=== PATIENT | male | born 1955 | race African-American/Black ===

== ENCOUNTER 2017-06-20 09:29 | Inpatient (IN) | payer OTHER ==
[~2017-06-20] VITALS: Ht 172.7 cm; Wt 213.0 kg
[~2017-06-20 09:29] MED LIST: ALBU2.5V13 NEB; OMEP20CA10 PO; POTA10TA15 PO; POTA8TAB4 PO
[2017-06-20] MEDS ORDERED: FURO-151 PO (09:58)
[2017-06-20] MEDS ORDERED: IPRATROPIUM/ALBUTEROL 0.5-3(2.5)MG/3ML NEB HHN ONE (10:30)
[2017-06-20 11:14] LABS: HEMATOCRIT. 35.8 % (42.0-52.0); HEMOGLOBIN. 11.5 g/dL (14.0-18.0); MEAN CORPUSCULAR HEMOGLOBIN 25.9 pg (28.0-32.0); MEAN CORPUSCULAR VOLUME 80.7 fL (80.0-94.0); MEAN PLATELET VOLUME 8.7 fl (7.4-10.4); RED BLOOD CELL COUNT 4.44 mill/uL (4.7-6.1); RED CELL DISTRIBUTION WIDTH 16.1 % (11.6-14.6)
[2017-06-20 11:40] LABS: CARBON DIOXIDE 29 mEq/L (21-32); CHLORIDE 103 mEq/L (98-107); INR 1.5; PARTIAL THROMBOPLASTIN TIME 26.8 sec (23.4-31.0); PROTHROMBIN TIME 15.6 sec (9.4-11.6)
[2017-06-20 11:48] LABS: TROPONIN I < 0.02 ng/mL (0.00-0.04)
[2017-06-20 12:29] LABS: PLATELET ESTIMATE NORMAL
[2017-06-20 12:30] LABS: PLATELET 205 x1000/uL (130-400)
[2017-06-20] MEDS ORDERED: FUROSEMIDE 40MG/4ML VIAL IVP ONE (13:45)
[2017-06-20 16:15] VITALS: BP 121/71
[2017-06-20 16:30] VITALS: BP 121/71
[2017-06-20] MEDS ORDERED: Proair HFA (17:57)
[2017-06-20] MEDS ORDERED: ACETAMINOPHEN 325MG TABLET PO PRN (19:30)
[2017-06-20] MEDS ORDERED: MAGNESIUM/ALUMINUM HYDROXIDE/SIMETHICONE 30ML UDC PO PRN (19:30)
[2017-06-20] MEDS ORDERED: GUAIFENESIN 200MG/10ML SUGAR FREE UDC PO PRN (19:30)
[2017-06-20] MEDS ORDERED: IPRATROPIUM/ALBUTEROL 0.5-3(2.5)MG/3ML NEB INH PRN (19:30)
[2017-06-20] MEDS ORDERED: CLONIDINE 0.1MG TABLET PO PRN (19:30)
[2017-06-20] MEDS ORDERED: MAGNESIUM HYDROXIDE 400MG/5ML 30ML UDC PO PRN (19:45)
[2017-06-20] MEDS ORDERED: ZOLPIDEM TARTRATE 5MG TABLET PO PRN (19:45)
[2017-06-20 20:00] VITALS: BP 145/86
[2017-06-20] MEDS: ENOXAPARIN 40MG/0.4ML SYR SUBCUT SCH (20:56)
[2017-06-20] MEDS: SODIUM CHLORIDE 0.9% INJ 3ML FLUSH IVF SCH (20:56)
[2017-06-20] MEDS: OMEPRAZOLE 20MG CAPSULE EXTENDED RELEASE PO SCH (23:40)
[2017-06-21] VITALS: BP 120/73
[2017-06-21 04:00] VITALS: BP 118/59
[2017-06-21] MEDS: SODIUM CHLORIDE 0.9% INJ 3ML FLUSH IVF SCH ×3 (05:23→21:39)
[2017-06-21] MEDS: OMEPRAZOLE 20MG CAPSULE EXTENDED RELEASE PO SCH ×2 (05:23→21:45)
[2017-06-21 08:00] VITALS: BP 141/88
[2017-06-21] MEDS: POTASSIUM CHLORIDE 20MEQ TABLET SR PO SCH ×2 (08:27→16:43)
[2017-06-21] MEDS: FUROSEMIDE 40MG/4ML VIAL IVP SCH ×3 (08:27→16:43)
[2017-06-21] MEDS: ENOXAPARIN 40MG/0.4ML SYR SUBCUT SCH ×2 (08:28→21:39)
[2017-06-21] MEDS: LOSARTAN POTASSIUM 25 MG TABLET PO SCH (08:28)
[2017-06-21] MEDS: CARVEDILOL 3.125 MG TABLET PO SCH ×2 (08:28→21:00)
[2017-06-21] MEDS ORDERED: FUROSEMIDE 40MG/4ML VIAL IVP SCH (09:00)
[2017-06-21] MEDS ORDERED: POTASSIUM CHLORIDE 20MEQ TABLET SR PO SCH (09:00)
[2017-06-21 12:00] VITALS: BP 114/80
[2017-06-21 16:00] VITALS: BP 114/67
[2017-06-21 20:00] VITALS: BP 108/55
[2017-06-21] MEDS: TRAMADOL 50MG TABLET PO PRN (21:41)
[2017-06-22] VITALS: BP 116/55
[2017-06-22] MEDS: IPRATROPIUM/ALBUTEROL 0.5-3(2.5)MG/3ML NEB HHN SCH ×4 (02:59→21:10)
[2017-06-22 04:00] VITALS: BP 98/47
[2017-06-22] MEDS: OMEPRAZOLE 20MG CAPSULE EXTENDED RELEASE PO SCH (05:46)
[2017-06-22] MEDS: SODIUM CHLORIDE 0.9% INJ 3ML FLUSH IVF SCH ×2 (05:46→13:29)
[2017-06-22] MEDS: TRAMADOL 50MG TABLET PO PRN (05:54)
[2017-06-22 07:51] LABS: CARBON DIOXIDE 35 mEq/L (21-32); CHLORIDE 98 mEq/L (98-107)
[2017-06-22] MEDS: POTASSIUM CHLORIDE 20MEQ TABLET SR PO SCH ×4 (08:24→17:51)
[2017-06-22] MEDS: FUROSEMIDE 40MG/4ML VIAL IVP SCH ×3 (08:24→16:22)
[2017-06-22] MEDS: LOSARTAN POTASSIUM 25 MG TABLET PO SCH (08:25)
[2017-06-22] MEDS: ENOXAPARIN 40MG/0.4ML SYR SUBCUT SCH (08:25)
[2017-06-22] MEDS: CARVEDILOL 3.125 MG TABLET PO SCH (08:26)
[2017-06-22 08:31] VITALS: BP 135/85
[2017-06-22 11:52] VITALS: BP 105/64
[2017-06-22] MEDS ORDERED: MAGNESIUM 4 G PREMIX 100 ML IV NR (15:00)
[2017-06-22 16:00] VITALS: BP 95/68
[2017-06-22 20:35] VITALS: BP 118/72
== END 2017-06-22 21:10 | disposition home or self-care (01) | DRG 291 ==
LOC: ER 12:22 → 5WST 13:59 → ENRESERV 14:10
PROVIDERS: ADMIT Internal Medicine; ATTEND Internal Medicine
DX: I11.0 Hypertensive heart disease with heart failure (principal); J96.20 Acute and chronic respiratory failure, unspecified whether with hypoxia or hypercapnia; Z68.45 Body mass index [BMI] 70 or greater, adult; I50.33 Acute on chronic diastolic (congestive) heart failure; K21.9 Gastro-esophageal reflux disease without esophagitis; G47.33 Obstructive sleep apnea (adult) (pediatric); J44.9 Chronic obstructive pulmonary disease, unspecified; E66.01 Morbid (severe) obesity due to excess calories; M19.90 Unspecified osteoarthritis, unspecified site; Z79.899 Other long term (current) drug therapy
CPT/HCPCS: 36415; 71010; 80048; 80053; 83690; 83735; 84484; 85025; 85610; 85730; 93005; 93306; 93970; 94640; 94644; 94660; 94664; 96374; 97162; 99285; J1650; J1940; J3475; J7050; J7620

== ENCOUNTER 2018-01-31 11:23 | Inpatient (IN) | payer OTHER ==
[~2018-01-31] VITALS: Ht 175.3 cm; Wt 208.7 kg
[~2018-01-31 11:23] MED LIST changes: -OMEP20CA10 PO; -POTA10TA15 PO; +Proair HFA
[2018-01-31] MEDS ORDERED: FURO40TA5 PO (11:34)
[2018-01-31] MEDS ORDERED: LOSA100T14 PO (11:34)
[2018-01-31 12:54] LABS: BASOPHILS % 0.5 % (0.0-2.0); EOSINOPHILS % 3.9 % (0.0-5.0); HEMATOCRIT. 33.5 % (42.0-52.0); HEMOGLOBIN. 10.8 g/dL (14.0-18.0); LYMPHOCYTES % 12.1 % (20.0-50.0); MEAN CORPUSCULAR HEMOGLOBIN 26.6 pg (28.0-32.0); MEAN CORPUSCULAR VOLUME 82.7 fL (80.0-94.0); MEAN PLATELET VOLUME 8.2 fl (7.4-10.4); MONOCYTES % 7.1 % (2.0-8.0); NEUTROPHILS % 76.4 % (40.0-76.0); PLATELET 215 x1000/uL (130-400); RED BLOOD CELL COUNT 4.04 mill/uL (4.7-6.1)
[2018-01-31 12:58] LABS: CHLORIDE 103 mEq/L (98-107)
[2018-01-31 13:01] LABS: INR 1.5; PARTIAL THROMBOPLASTIN TIME 34.8 sec (23.4-31.0)
[2018-01-31] MEDS ORDERED: FUROSEMIDE 40MG/4ML VIAL IVP ONE (14:00)
[2018-01-31] MEDS ORDERED: ACETAMINOPHEN 325MG TABLET PO PRN (17:00)
[2018-01-31] MEDS ORDERED: CLONIDINE 0.1MG TABLET PO PRN (17:00)
[2018-01-31] MEDS ORDERED: ONDANSETRON HCL 4MG/2ML VIAL IV PRN (17:00)
[2018-01-31] MEDS ORDERED: DOCUSATE SODIUM 100MG CAPSULE PO PRN (17:00)
[2018-01-31] MEDS ORDERED: GUAIFENESIN 200MG/10ML SUGAR FREE UDC PO PRN (17:00)
[2018-01-31] MEDS ORDERED: HYDROCODONE/ACETAMINOPHEN 5/325MG TABLET PO PRN (17:00)
[2018-01-31] MEDS ORDERED: IPRATROPIUM/ALBUTEROL 0.5-3(2.5)MG/3ML NEB INH PRN (17:00)
[2018-01-31 18:26] LABS: CLARITY URINE CLOUDY (CLEAR); COLOR URINE YELLOW (YELLOW); KETONES URINE TRACE (NEGATIVE); LEUKOCYTE ESTERASE URINE NEGATIVE (NEGATIVE); NITRITE URINE NEGATIVE (NEGATIVE); OCCULT BLOOD URINE NEGATIVE (NEGATIVE); PROTEIN URINE NEGATIVE (NEGATIVE); SPECIFIC GRAVITY URINE 1.029 (1.005-1.030)
[2018-01-31] MEDS: LOSARTAN POTASSIUM 100 MG TABLET PO SCH (20:45)
[2018-01-31] MEDS: METHYLPREDNISOLONE SOD SUCC 40 MG/ML VIAL IV SCH (20:45)
[2018-01-31 22:00] VITALS: BP 112/46
[2018-01-31] MEDS ORDERED: IBUP-2030 PO (23:15)
[2018-02-01] MEDS ORDERED: LEVOFLOXACIN 750MG PREMIX 150 ML IV NR
[2018-02-01 00:16] VITALS: BP 113/65
[2018-02-01] MEDS: IPRATROPIUM/ALBUTEROL 0.5-3(2.5)MG/3ML NEB HHN SCH ×4 (01:11→21:32)
[2018-02-01 04:43] VITALS: BP 115/64
[2018-02-01 07:02] LABS: HEMATOCRIT. 30.9 % (42.0-52.0); INR 1.6; MEAN CORPUSCULAR HEMOGLOBIN 26.9 pg (28.0-32.0); MEAN CORPUSCULAR VOLUME 82.6 fL (80.0-94.0); MEAN PLATELET VOLUME 8.3 fl (7.4-10.4); PLATELET 197 x1000/uL (130-400); PROTHROMBIN TIME 16.3 sec (9.4-11.6); RED BLOOD CELL COUNT 3.74 mill/uL (4.7-6.1); RED CELL DISTRIBUTION WIDTH 16.1 % (11.6-14.6)
[2018-02-01 07:27] LABS: CHLORIDE 102 mEq/L (98-107)
[2018-02-01 07:43] LABS: LDL CHOLESTEROL 59 mg/dL (5-100)
[2018-02-01 07:44] LABS: T4 FREE 1.18 ng/dL (0.76-1.46)
[2018-02-01 07:45] LABS: HDL CHOLESTEROL 47 mg/dL (40-59)
[2018-02-01 07:59] VITALS: BP 132/76
[2018-02-01] MEDS ORDERED: FUROSEMIDE 40MG TABLET PO SCH (09:00)
[2018-02-01] MEDS: FAMOTIDINE 20MG/2ML VIAL IV SCH ×2 (09:00→21:47)
[2018-02-01] MEDS: ENOXAPARIN 40MG/0.4ML SYR SUBCUT SCH ×2 (09:00→21:47)
[2018-02-01] MEDS: METHYLPREDNISOLONE SOD SUCC 40 MG/ML VIAL IV SCH ×2 (09:39→21:47)
[2018-02-01 12:08] VITALS: BP 119/65
[2018-02-01] MEDS: LOSARTAN POTASSIUM 100 MG TABLET PO SCH (12:17)
[2018-02-01 16:00] VITALS: BP 138/67
[2018-02-01] MEDS ORDERED: FUROSEMIDE 40MG/4ML VIAL IVP NR (20:00)
[2018-02-01 20:12] LABS: PLATELET ESTIMATE NORMAL
[2018-02-01 20:15] VITALS: BP 120/71
[2018-02-01] MEDS: LEVOFLOXACIN 750MG PREMIX 150 ML IV SCH (21:47)
[2018-02-02 00:27] VITALS: BP 119/52
[2018-02-02] MEDS: IPRATROPIUM/ALBUTEROL 0.5-3(2.5)MG/3ML NEB HHN SCH ×4 (03:51→21:29)
[2018-02-02 04:45] VITALS: BP 131/72
[2018-02-02 07:30] LABS: CHLORIDE 101 mEq/L (98-107)
[2018-02-02 07:51] VITALS: BP 129/71
[2018-02-02] MEDS: FAMOTIDINE 20MG/2ML VIAL IV SCH ×2 (08:26→22:28)
[2018-02-02] MEDS: FUROSEMIDE 40MG/4ML VIAL IVP SCH (08:26)
[2018-02-02] MEDS: METHYLPREDNISOLONE SOD SUCC 40 MG/ML VIAL IV SCH ×2 (08:27→21:38)
[2018-02-02] MEDS: LOSARTAN POTASSIUM 100 MG TABLET PO SCH (08:27)
[2018-02-02] MEDS: ENOXAPARIN 40MG/0.4ML SYR SUBCUT SCH ×2 (08:28→21:36)
[2018-02-02] MEDS ORDERED: DILTIAZEM HCL 60MG TABLET PO NR (09:09)
[2018-02-02 11:57] VITALS: BP 128/65
[2018-02-02 19:33] VITALS: BP 131/73
[2018-02-02] MEDS: HYDROCORTISONE 2.5% OINT 20GM TOP SCH (21:36)
[2018-02-02] MEDS: DILTIAZEM HCL 60MG TABLET PO SCH (21:36)
[2018-02-02] MEDS: LEVOFLOXACIN 750MG PREMIX 150 ML IV SCH (22:29)
[2018-02-02 23:48] VITALS: BP 122/65
[2018-02-03] MEDS: IPRATROPIUM/ALBUTEROL 0.5-3(2.5)MG/3ML NEB HHN SCH ×3 (01:13→14:17)
[2018-02-03 05:18] VITALS: BP 170/83
[2018-02-03] MEDS: DILTIAZEM HCL 60MG TABLET PO SCH ×2 (05:43→13:59)
[2018-02-03 06:36] LABS: HEMATOCRIT 32.3 % (42.0-52.0); HEMOGLOBIN 10.5 g/dL (14.0-18.0); MEAN CORPUSCULAR VOLUME 82.9 fL (80.0-94.0); PLATELET 246 x1000/uL (130-400); RED CELL DISTRIBUTION WIDTH 15.8 % (11.6-14.6)
[2018-02-03 07:03] LABS: CHLORIDE 97 mEq/L (98-107)
[2018-02-03 08:00] VITALS: BP 128/62
[2018-02-03] MEDS: METHYLPREDNISOLONE SOD SUCC 40 MG/ML VIAL IV SCH (09:08)
[2018-02-03] MEDS: FUROSEMIDE 40MG/4ML VIAL IVP SCH (09:08)
[2018-02-03] MEDS: ENOXAPARIN 40MG/0.4ML SYR SUBCUT SCH (09:09)
[2018-02-03] MEDS: LOSARTAN POTASSIUM 100 MG TABLET PO SCH (09:09)
[2018-02-03] MEDS: FAMOTIDINE 20MG/2ML VIAL IV SCH (09:14)
[2018-02-03] MEDS: HYDROCORTISONE 2.5% OINT 20GM TOP SCH (09:16)
[2018-02-03 12:00] VITALS: BP 122/70
[2018-02-03] MEDS ORDERED: LEVOFLOXACIN 250MG TABLET PO SCH (16:00)
[2018-02-03 17:44] VITALS: BP 138/65
== END 2018-02-03 18:00 | disposition home or self-care (01) | DRG 291 ==
LOC: ER 13:23 → 6WST 14:51 → SUPCPDRO 16:47 → ENRESERV 19:09
PROVIDERS: ADMIT Internal Medicine; ATTEND Internal Medicine
PROC: 5A09357 Assistance with Respiratory Ventilation, Less than 24 Consecutive Hours, Continuous Positive Airway Pressure (ICD-10-PCS; principal; 2018-02-01)
PROC: 5A09357 Assistance with Respiratory Ventilation, Less than 24 Consecutive Hours, Continuous Positive Airway Pressure (ICD-10-PCS; 2018-02-02)
PROC: 5A09357 Assistance with Respiratory Ventilation, Less than 24 Consecutive Hours, Continuous Positive Airway Pressure (ICD-10-PCS; 2018-02-03)
DX: I11.0 Hypertensive heart disease with heart failure (principal); J18.9 Pneumonia, unspecified organism; D68.9 Coagulation defect, unspecified; J44.0 Chronic obstructive pulmonary disease with (acute) lower respiratory infection; E66.2 Morbid (severe) obesity with alveolar hypoventilation; Z68.44 Body mass index [BMI] 60.0-69.9, adult; I47.1 Supraventricular tachycardia; J06.9 Acute upper respiratory infection, unspecified; I50.43 Acute on chronic combined systolic (congestive) and diastolic (congestive) heart failure; D64.9 Anemia, unspecified; Z79.899 Other long term (current) drug therapy
CPT/HCPCS: 36415; 71045; 80048; 80053; 80061; 81003; 83036; 83880; 84439; 84443; 84484; 85025; 85027; 85610; 85730; 93005; 93306; 93970; 94640; 94660; A6261; J1650; J1940; J1956; J2920; J3490; J7050; J7620

== ENCOUNTER 2019-05-14 15:37 | Emergency (ER) | payer OTHER ==
[~2019-05-14] VITALS: Ht 172.7 cm; Wt 215.9 kg
[~2019-05-14 15:37] MED LIST changes: +FURO40TA5 PO; +IBUP-2030 PO; +LOSA100T32 PO
[2019-05-14] MEDS ORDERED: METHYLPREDNISOLONE SOD SUCC 125 MG/2 ML VIAL IV STA (16:50)
[2019-05-14] MEDS ORDERED: IPRATROPIUM BROMIDE (0.02%) 0.5MG/2.5ML NEB HHN STA (16:50)
[2019-05-14] MEDS ORDERED: ALBUTEROL (0.083%) 2.5MG/3ML NEB HHN STA (16:50)
[2019-05-14] MEDS ORDERED: MAGNESIUM 2 G PREMIX 50 ML IV ONE (17:00)
[2019-05-14] MEDS ORDERED: ALBUTEROL (0.083%) 2.5MG/3ML NEB ONE (17:04)
[2019-05-14] MEDS ORDERED: IPRATROPIUM BROMIDE (0.02%) 0.5MG/2.5ML NEB ONE (17:04)
[2019-05-14 17:08] LABS: BASOPHILS % 0.6 % (0.0-2.0); EOSINOPHILS % 3.4 % (0.0-5.0); HEMATOCRIT. 34.6 % (42.0-52.0); HEMOGLOBIN. 11.2 g/dL (14.0-18.0); LYMPHOCYTES % 13.2 % (20.0-50.0); MEAN CORPUSCULAR HEMOGLOBIN 27.2 pg (28.0-32.0); MEAN PLATELET VOLUME 9.2 fl (7.4-10.4); MONOCYTES % 6.9 % (2.0-8.0); NEUTROPHILS % 75.9 % (40.0-76.0); PLATELET 204 x1000/uL (130-400); RED BLOOD CELL COUNT 4.12 mill/uL (4.7-6.1); RED CELL DISTRIBUTION WIDTH 15.8 % (11.6-14.6)
[2019-05-14 17:12] LABS: CHLORIDE 102 mEq/L (98-107)
[2019-05-14] MEDS ORDERED: ASPIRIN 81MG TABLET PO ONE (21:30)
[2019-05-14 23:46] VITALS: BP 144/74
== END 2019-05-14 23:42 | disposition short-term general hospital (02) ==
LOC: ER 15:37 → CANBEDREQ 18:47 → ER 23:42
DX: J44.1 Chronic obstructive pulmonary disease with (acute) exacerbation (principal); I11.0 Hypertensive heart disease with heart failure; I50.9 Heart failure, unspecified; G47.30 Sleep apnea, unspecified
CPT/HCPCS: 36415; 71045; 80053; 83880; 84484; 85025; 93005; 94640; 96365; 96366; 96375; 99285; J2930; J3475; J7611

== ENCOUNTER 2019-06-18 01:36 | Inpatient (IN) | payer OTHER ==
[~2019-06-18] VITALS: Ht 172.7 cm; Wt 214.5 kg
[2019-06-18 02:36] LABS: BASOPHILS % 0.6 % (0.0-2.0); EOSINOPHILS % 1.1 % (0.0-5.0); HEMATOCRIT. 34.8 % (42.0-52.0); HEMOGLOBIN. 11.4 g/dL (14.0-18.0); LYMPHOCYTES % 13.7 % (20.0-50.0); MEAN CORPUSCULAR HEMOGLOBIN 27.3 pg (28.0-32.0); MEAN CORPUSCULAR VOLUME 83.1 fL (80.0-94.0); MEAN PLATELET VOLUME 8.2 fl (7.4-10.4); MONOCYTES % 6.3 % (2.0-8.0); NEUTROPHILS % 78.3 % (40.0-76.0); PLATELET 219 x1000/uL (130-400); RED BLOOD CELL COUNT 4.19 mill/uL (4.7-6.1); RED CELL DISTRIBUTION WIDTH 15.2 % (11.6-14.6)
[2019-06-18] MEDS ORDERED: IPRATROPIUM BROMIDE (0.02%) 0.5MG/2.5ML NEB HHN STA (02:36)
[2019-06-18] MEDS ORDERED: ALBUTEROL (0.083%) 2.5MG/3ML NEB HHN STA (02:36)
[2019-06-18 02:43] LABS: CHLORIDE 99 mEq/L (98-107)
[2019-06-18] MEDS ORDERED: METHYLPREDNISOLONE SOD SUCC 125 MG/2 ML VIAL IV ONE (04:30)
[2019-06-18 08:00] VITALS: BP 143/79
[2019-06-18] MEDS ORDERED: DILT60TA3 PO (10:50)
[2019-06-18] MEDS ORDERED: DIPHENHYDRAMINE 50MG/ML VIAL IV PRN (11:00)
[2019-06-18] MEDS ORDERED: ACETAMINOPHEN 325MG TABLET PO PRN (11:00)
[2019-06-18] MEDS ORDERED: MAGNESIUM/ALUMINUM HYDROXIDE/SIMETHICONE 30ML UDC PO PRN (11:00)
[2019-06-18] MEDS ORDERED: IPRATROPIUM/ALBUTEROL 0.5-3(2.5)MG/3ML NEB NEB PRN (11:00)
[2019-06-18] MEDS ORDERED: ONDANSETRON HCL 4MG/2ML INJ IV PRN (11:00)
[2019-06-18] MEDS ORDERED: NA PHOS,M-B/NA PHOS,DI-BA ENEMA 118ML PR PRN (11:00)
[2019-06-18] MEDS ORDERED: CLONIDINE 0.1MG TABLET PO PRN (11:00)
[2019-06-18] MEDS ORDERED: HYDROCODONE/ACETAMINOPHEN 5/325MG TABLET PO PRN (11:00)
[2019-06-18] MEDS ORDERED: ACETAMINOPHEN 650MG SUPP PR PRN (11:00)
[2019-06-18] MEDS ORDERED: GUAIFENESIN 200MG/10ML SUGAR FREE UDC PO PRN (11:00)
[2019-06-18] MEDS ORDERED: LORAZEPAM 0.5MG TABLET PO PRN (11:00)
[2019-06-18 11:24] VITALS: BP 140/75
[2019-06-18 12:00] VITALS: BP 138/70
[2019-06-18] MEDS: FUROSEMIDE 40MG/4ML VIAL IV SCH (12:02)
[2019-06-18] MEDS: METHYLPREDNISOLONE SOD SUCC 40 MG/ML VIAL IV SCH ×2 (12:02→20:40)
[2019-06-18] MEDS: DOCUSATE SODIUM 100MG CAPSULE PO PRN (12:02)
[2019-06-18 12:30] LABS: BG BASE EXCESS 2.6 mmol/L (-2.0-2.0); BG CARBOXYHEMOGLOBIN 0.4 % (0.5-1.5); BG DEOXYHEMOGLOBIN 11.3 % (0.0-5.0); BG FRACTION INSPIRED OXYGEN 21; BG HCO3 ACT 28.1 mmol/L (22.0-26.0); BG METHEMOGLOBIN 0.1 % (0.0-1.5); BG OXYGEN SATURATION 88.6 % (92.0-98.5); BG OXYHEMOGLOBIN 88.2 % (94.0-97.0); BG PCO2 46.9 mmHg (35.0-45.0); BG PH 7.395 (7.350-7.450); BG SAMPLE SITE LEFT RADIAL; BG TOTAL HEMOGLOBIN 12.4 g/dL (12.0-18.0); BG VENT MODE ROOM AIR
[2019-06-18] MEDS: IPRATROPIUM/ALBUTEROL 0.5-3(2.5)MG/3ML NEB NEB SCH ×2 (14:20→20:28)
[2019-06-18 16:00] VITALS: BP 155/75
[2019-06-18] MEDS ORDERED: POTASSIUM CHLORIDE 20MEQ TABLET SR PO NR (17:00)
[2019-06-18] MEDS ORDERED: PIPERACILLIN/TAZOBACTAM 3.375 G in DEXT 5% WATER 100 ML IV SCH (18:00)
[2019-06-18] MEDS: DILTIAZEM HCL 60MG TABLET PO SCH ×2 (18:08→23:00)
[2019-06-18] MEDS: LOSARTAN POTASSIUM 100 MG TABLET PO SCH (18:09)
[2019-06-18 20:00] VITALS: BP 132/79
[2019-06-18] MEDS: BUDESONIDE 0.5MG/2ML NEB HHN SCH (20:27)
[2019-06-18] MEDS: PIPERACILLIN/TAZOBACTAM 3.375 G in DEXT 5% WATER 100 ML IV SCH (20:40)
[2019-06-18] MEDS: ENOXAPARIN 40MG/0.4ML SYR SUBCUT SCH (20:41)
[2019-06-19 00:17] VITALS: BP 145/79
[2019-06-19] MEDS: IPRATROPIUM/ALBUTEROL 0.5-3(2.5)MG/3ML NEB NEB SCH ×4 (00:43→22:02)
[2019-06-19] MEDS: PIPERACILLIN/TAZOBACTAM 3.375 G in DEXT 5% WATER 100 ML IV SCH ×4 (03:02→21:43)
[2019-06-19 04:59] VITALS: BP 122/74
[2019-06-19] MEDS: DILTIAZEM HCL 60MG TABLET PO SCH ×3 (05:42→21:46)
[2019-06-19] MEDS: METHYLPREDNISOLONE SOD SUCC 40 MG/ML VIAL IV SCH ×3 (05:42→21:38)
[2019-06-19 06:36] LABS: BASOPHILS % 0.2 % (0.0-2.0); HEMATOCRIT. 33.7 % (42.0-52.0); LYMPHOCYTES % 7.2 % (20.0-50.0); MEAN CORPUSCULAR HEMOGLOBIN 27.5 pg (28.0-32.0); MEAN CORPUSCULAR VOLUME 84.1 fL (80.0-94.0); MEAN PLATELET VOLUME 9.6 fl (7.4-10.4); MONOCYTES % 3.7 % (2.0-8.0); NEUTROPHILS % 88.9 % (40.0-76.0); PLATELET 187 x1000/uL (130-400); RED BLOOD CELL COUNT 4.01 mill/uL (4.7-6.1); RED CELL DISTRIBUTION WIDTH 15.4 % (11.6-14.6)
[2019-06-19 07:48] LABS: CHLORIDE 98 mEq/L (98-107)
[2019-06-19] MEDS: BUDESONIDE 0.5MG/2ML NEB HHN SCH ×2 (07:52→22:02)
[2019-06-19 07:56] LABS: HDL CHOLESTEROL 55 mg/dL (40-59)
[2019-06-19 07:57] LABS: PHOSPHORUS 4.3 mg/dL (2.5-4.9)
[2019-06-19 07:58] LABS: LDL CHOLESTEROL 73 mg/dL (5-100)
[2019-06-19 08:35] LABS: CLARITY URINE CLEAR (CLEAR); COLOR URINE YELLOW (YELLOW); KETONES URINE NEGATIVE (NEGATIVE); LEUKOCYTE ESTERASE URINE NEGATIVE (NEGATIVE); NITRITE URINE NEGATIVE (NEGATIVE); OCCULT BLOOD URINE NEGATIVE (NEGATIVE); PROTEIN URINE NEGATIVE (NEGATIVE); SPECIFIC GRAVITY URINE 1.022 (1.005-1.030); UROBILINOGEN URINE 0.2 E.U./dL (0.2-1.0)
[2019-06-19 08:42] VITALS: BP 104/64
[2019-06-19] MEDS: LOSARTAN POTASSIUM 100 MG TABLET PO SCH (08:57)
[2019-06-19] MEDS: DOCUSATE SODIUM 100MG CAPSULE PO PRN (09:01)
[2019-06-19] MEDS: FUROSEMIDE 40MG/4ML VIAL IV SCH ×2 (09:01→18:28)
[2019-06-19] MEDS: ENOXAPARIN 40MG/0.4ML SYR SUBCUT SCH ×2 (09:02→21:45)
[2019-06-19 09:23] LABS: *AMPHETAMINES SCREEN URINE NEGATIVE (NEGATIVE); *BARBITURATES SCREEN URINE NEGATIVE (NEGATIVE); *BENZODIAZEPINES SCREEN URINE NEGATIVE (NEGATIVE); *COCAINE SCREEN URINE NEGATIVE (NEGATIVE)
[2019-06-19 09:24] LABS: CANNABINOID URINE SCREEN NEGATIVE (NEGATIVE); METHADONE URINE SCREEN NEGATIVE (NEGATIVE); OPIATES URINE SCREEN NEGATIVE (NEGATIVE); PHENCYCLIDINE URINE SCREEN NEGATIVE (NEGATIVE)
[2019-06-19 12:00] VITALS: BP 118/69
[2019-06-19 16:00] VITALS: BP 128/65
[2019-06-19] MEDS ORDERED: DEXTROSE 50% WATER 50ML SYRINGE IV PRN (16:00)
[2019-06-19] MEDS: BLOOD SUGAR DIAGNOSTIC STRIP TEST SCH ×2 (18:23→21:45)
[2019-06-19] MEDS: INSULIN LISPRO 100 UNITS/ML SUBCUT SCH ×2 (18:29→21:53)
[2019-06-19 20:00] VITALS: BP 130/71
[2019-06-20] VITALS: BP 124/70
[2019-06-20] MEDS: PIPERACILLIN/TAZOBACTAM 3.375 G in DEXT 5% WATER 100 ML IV SCH ×3 (01:41→12:51)
[2019-06-20 04:00] VITALS: BP 126/72
[2019-06-20] MEDS: METHYLPREDNISOLONE SOD SUCC 40 MG/ML VIAL IV SCH ×2 (05:18→12:51)
[2019-06-20] MEDS: DILTIAZEM HCL 60MG TABLET PO SCH ×2 (05:56→12:52)
[2019-06-20] MEDS: BLOOD SUGAR DIAGNOSTIC STRIP TEST SCH ×2 (05:56→12:47)
[2019-06-20 07:32] LABS: HEMATOCRIT 34.7 % (42.0-52.0); HEMOGLOBIN 11.2 g/dL (14.0-18.0); MEAN CORPUSCULAR HEMOGLOBIN 27.1 pg (28.0-32.0); PLATELET 215 x1000/uL (130-400); RED BLOOD CELL COUNT 4.13 mill/uL (4.7-6.1); RED CELL DISTRIBUTION WIDTH 15.6 % (11.6-14.6)
[2019-06-20 07:40] LABS: CHLORIDE 95 mEq/L (98-107)
[2019-06-20 08:00] VITALS: BP 130/78
[2019-06-20] MEDS: LOSARTAN POTASSIUM 100 MG TABLET PO SCH (08:33)
[2019-06-20] MEDS: DOCUSATE SODIUM 100MG CAPSULE PO PRN (08:33)
[2019-06-20] MEDS: FUROSEMIDE 40MG/4ML VIAL IV SCH (08:34)
[2019-06-20] MEDS: ENOXAPARIN 40MG/0.4ML SYR SUBCUT SCH (08:34)
[2019-06-20] MEDS: INSULIN LISPRO 100 UNITS/ML SUBCUT SCH ×2 (08:35→12:53)
[2019-06-20] MEDS: BUDESONIDE 0.5MG/2ML NEB HHN SCH (08:58)
[2019-06-20] MEDS: IPRATROPIUM/ALBUTEROL 0.5-3(2.5)MG/3ML NEB NEB SCH ×2 (08:58→14:17)
[2019-06-20 12:00] VITALS: BP 117/75
[2019-06-20 16:00] VITALS: BP 139/71
[2019-06-20 16:22] VITALS: BP 139/71
== END 2019-06-20 18:41 | disposition home or self-care (01) | DRG 291 ==
LOC: ER 01:36 → 7WST 05:23 → ENRESERV 07:01
PROVIDERS: ADMIT Internal Medicine; ATTEND Internal Medicine
PROC: 5A09357 Assistance with Respiratory Ventilation, Less than 24 Consecutive Hours, Continuous Positive Airway Pressure (ICD-10-PCS; principal; 2019-06-19)
PROC: 5A09357 Assistance with Respiratory Ventilation, Less than 24 Consecutive Hours, Continuous Positive Airway Pressure (ICD-10-PCS; 2019-06-20)
DX: I11.0 Hypertensive heart disease with heart failure (principal); J18.9 Pneumonia, unspecified organism; J44.1 Chronic obstructive pulmonary disease with (acute) exacerbation; E66.2 Morbid (severe) obesity with alveolar hypoventilation; E87.2 Acidosis; N39.0 Urinary tract infection, site not specified; J45.901 Unspecified asthma with (acute) exacerbation; Z68.45 Body mass index [BMI] 70 or greater, adult; J44.0 Chronic obstructive pulmonary disease with (acute) lower respiratory infection; R73.9 Hyperglycemia, unspecified; I50.23 Acute on chronic systolic (congestive) heart failure; R73.03 Prediabetes; D64.9 Anemia, unspecified; I48.0 Paroxysmal atrial fibrillation; Z99.81 Dependence on supplemental oxygen; Z79.899 Other long term (current) drug therapy
CPT/HCPCS: 36415; 36600; 71045; 80048; 80061; 80305; 81003; 82375; 82805; 82962; 83036; 83735; 83880; 84100; 84132; 84439; 84443; 84484; 85027; 87070; 87804; 93005; 93970; 94640; 94660; 97162; 97535; 99285; J1650; J1815; J1940; J2543; J2920; J2930; J7060; J7611; J7620; J7626

== ENCOUNTER 2019-08-15 14:39 | Inpatient (IN) | payer OTHER ==
[2019-08-14 22:00] VITALS: BP 125/71
[~2019-08-15] VITALS: Ht 167.6 cm; Wt 218.6 kg
[~2019-08-15 14:39] MED LIST changes: +DILT60TA3 PO; -IBUP-2030 PO
[2019-08-15] MEDS ORDERED: IPRATROPIUM BROMIDE (0.02%) 0.5MG/2.5ML NEB HHN STA (15:58)
[2019-08-15] MEDS ORDERED: ALBUTEROL (0.083%) 2.5MG/3ML NEB HHN STA (15:58)
[2019-08-15] MEDS ORDERED: METHYLPREDNISOLONE SOD SUCC 125 MG/2 ML VIAL IV STA (15:58)
[2019-08-15] MEDS ORDERED: FUROSEMIDE 40MG/4ML VIAL IV ONE (16:00)
[2019-08-15] MEDS ORDERED: NITROGLYCERIN OINT 1GM/INCH UDPKT TD ONE (16:00)
[2019-08-15] MEDS ORDERED: ASPIRIN 81MG TABLET PO ONE (16:00)
[2019-08-15 16:34] LABS: BASOPHILS % 0.8 % (0.0-2.0); EOSINOPHILS % 4.1 % (0.0-5.0); HEMATOCRIT. 36.1 % (42.0-52.0); HEMOGLOBIN. 11.7 g/dL (14.0-18.0); LYMPHOCYTES % 13.4 % (20.0-50.0); MEAN CORPUSCULAR VOLUME 83.2 fL (80.0-94.0); MEAN PLATELET VOLUME 8.5 fl (7.4-10.4); MONOCYTES % 5.8 % (2.0-8.0); NEUTROPHILS % 75.9 % (40.0-76.0); PLATELET 236 x1000/uL (130-400); RED BLOOD CELL COUNT 4.34 mill/uL (4.7-6.1); RED CELL DISTRIBUTION WIDTH 15.4 % (11.6-14.6)
[2019-08-15 16:39] LABS: CHLORIDE 99 mEq/L (98-107)
[2019-08-15 16:44] LABS: INR 1.5; PARTIAL THROMBOPLASTIN TIME 29.6 sec (23.4-31.0); PROTHROMBIN TIME 15.3 sec (9.6-11.0)
[2019-08-15] MEDS ORDERED: POTA20TA82 MT (22:49)
[2019-08-15] MEDS ORDERED: POTA20TA82 PO (22:51)
[2019-08-16] VITALS (7 sets, daily range): BP systolic 118–140; BP diastolic 60–86
[2019-08-16] MEDS ORDERED: HYDROCODONE/ACETAMINOPHEN 5/325MG TABLET PO PRN (01:45)
[2019-08-16 06:03] LABS: HEMATOCRIT. 34.8 % (42.0-52.0); HEMOGLOBIN. 11.3 g/dL (14.0-18.0); LYMPHOCYTES % 8.2 % (20.0-50.0); MEAN CORPUSCULAR HEMOGLOBIN 26.9 pg (28.0-32.0); MEAN CORPUSCULAR VOLUME 82.9 fL (80.0-94.0); MEAN PLATELET VOLUME 8.4 fl (7.4-10.4); MONOCYTES % 2.1 % (2.0-8.0); NEUTROPHILS % 89.7 % (40.0-76.0); PLATELET 221 x1000/uL (130-400); RED BLOOD CELL COUNT 4.19 mill/uL (4.7-6.1); RED CELL DISTRIBUTION WIDTH 15.5 % (11.6-14.6)
[2019-08-16 06:11] LABS: CHLORIDE 99 mEq/L (98-107)
[2019-08-16 06:26] LABS: T4 FREE 1.05 ng/dL (0.76-1.46)
[2019-08-16 08:01] LABS: *AMPHETAMINES SCREEN URINE NEGATIVE (NEGATIVE); *BARBITURATES SCREEN URINE NEGATIVE (NEGATIVE)
[2019-08-16 08:02] LABS: *BENZODIAZEPINES SCREEN URINE NEGATIVE (NEGATIVE); *COCAINE SCREEN URINE NEGATIVE (NEGATIVE); CANNABINOID URINE SCREEN NEGATIVE (NEGATIVE); METHADONE URINE SCREEN NEGATIVE (NEGATIVE); OPIATES URINE SCREEN PRESUMTIVE POSITIVE (NEGATIVE); PHENCYCLIDINE URINE SCREEN NEGATIVE (NEGATIVE)
[2019-08-16] MEDS: METHYLPREDNISOLONE SOD SUCC 40 MG/ML VIAL IV SCH ×2 (08:11→21:07)
[2019-08-16] MEDS: PANTOPRAZOLE 40MG DR TABLET PO SCH (08:12)
[2019-08-16] MEDS: ENOXAPARIN 40MG/0.4ML SYR SUBCUT SCH ×2 (08:12→21:06)
[2019-08-16] MEDS: FUROSEMIDE 40MG/4ML VIAL IVP SCH ×2 (08:12→21:06)
[2019-08-16] MEDS ORDERED: ENOXAPARIN 40MG/0.4ML SYR SUBCUT SCH (09:00)
[2019-08-16] MEDS: IPRATROPIUM/ALBUTEROL 0.5-3(2.5)MG/3ML NEB HHN SCH ×4 (09:17→21:15)
[2019-08-16] MEDS ORDERED: ONDANSETRON HCL 4MG/2ML INJ IV PRN (13:45)
[2019-08-17 04:00] VITALS: BP 107/51
[2019-08-17 08:00] VITALS: BP 136/79
[2019-08-17] MEDS: IPRATROPIUM/ALBUTEROL 0.5-3(2.5)MG/3ML NEB HHN SCH ×3 (08:51→16:39)
[2019-08-17] MEDS ORDERED: LIDOCAINE HCL/PF 1% 2ML VIAL ONE (09:00)
[2019-08-17] MEDS: METHYLPREDNISOLONE SOD SUCC 40 MG/ML VIAL IV SCH (09:08)
[2019-08-17] MEDS: ENOXAPARIN 40MG/0.4ML SYR SUBCUT SCH (09:08)
[2019-08-17] MEDS: PANTOPRAZOLE 40MG DR TABLET PO SCH (09:08)
[2019-08-17] MEDS: FUROSEMIDE 40MG/4ML VIAL IVP SCH (09:08)
[2019-08-17 09:18] LABS: CHLORIDE 97 mEq/L (98-107)
[2019-08-17 09:29] LABS: BASOPHILS % 0.1 % (0.0-2.0); HEMATOCRIT. 34.9 % (42.0-52.0); HEMOGLOBIN. 11.3 g/dL (14.0-18.0); LYMPHOCYTES % 12.1 % (20.0-50.0); MEAN CORPUSCULAR HEMOGLOBIN 26.9 pg (28.0-32.0); MEAN CORPUSCULAR VOLUME 82.9 fL (80.0-94.0); MEAN PLATELET VOLUME 8.9 fl (7.4-10.4); MONOCYTES % 6.7 % (2.0-8.0); NEUTROPHILS % 81.1 % (40.0-76.0); PLATELET 230 x1000/uL (130-400); RED BLOOD CELL COUNT 4.22 mill/uL (4.7-6.1); RED CELL DISTRIBUTION WIDTH 15.2 % (11.6-14.6)
[2019-08-17 12:00] VITALS: BP 120/79
[2019-08-17 14:18] LABS: BG BASE EXCESS 8.4 mmol/L (-2.0-2.0); BG CARBOXYHEMOGLOBIN 0.5 % (0.5-1.5); BG DEOXYHEMOGLOBIN 5.7 % (0.0-5.0); BG FRACTION INSPIRED OXYGEN 32; BG HCO3 ACT 34.4 mmol/L (22.0-26.0); BG METHEMOGLOBIN 0.3 % (0.0-1.5); BG OXYGEN SATURATION 94.3 % (92.0-98.5); BG OXYHEMOGLOBIN 93.5 % (94.0-97.0); BG PCO2 53.1 mmHg (35.0-45.0); BG PH 7.429 (7.350-7.450); BG PO2 75.5 mmHg (75.0-100.0); BG SAMPLE SITE RIGHT RADIAL; BG TOTAL HEMOGLOBIN 13.1 g/dL (12.0-18.0); BG VENT MODE NASAL CANNULA
[2019-08-17 16:00] VITALS: BP 148/88
[2019-08-17 16:46] VITALS: BP 148/88
[2019-10-08] MEDS ORDERED: P20 MT (12:49)
[2019-10-08] MEDS ORDERED: DILT30TA38 MT (12:49)
[2019-10-08] MEDS ORDERED: FLUT1AER INH (12:49)
[2019-10-08] MEDS ORDERED: FURO-151 MT (12:51)
== END 2019-08-17 18:00 | disposition home or self-care (01) | DRG 190 ==
LOC: ER 14:39 → 7WST 18:01 → ENRESERVDT 20:40 → ENRESERVTM 20:40
PROVIDERS: ADMIT Internal Medicine; ATTEND Internal Medicine
PROC: 5A09357 Assistance with Respiratory Ventilation, Less than 24 Consecutive Hours, Continuous Positive Airway Pressure (ICD-10-PCS; principal; 2019-08-16)
PROC: 5A09357 Assistance with Respiratory Ventilation, Less than 24 Consecutive Hours, Continuous Positive Airway Pressure (ICD-10-PCS; 2019-08-17)
DX: J44.1 Chronic obstructive pulmonary disease with (acute) exacerbation (principal); I50.23 Acute on chronic systolic (congestive) heart failure; I42.9 Cardiomyopathy, unspecified; E66.2 Morbid (severe) obesity with alveolar hypoventilation; Z68.45 Body mass index [BMI] 70 or greater, adult; N39.0 Urinary tract infection, site not specified; J45.901 Unspecified asthma with (acute) exacerbation; J96.10 Chronic respiratory failure, unspecified whether with hypoxia or hypercapnia; E44.1 Mild protein-calorie malnutrition; I11.0 Hypertensive heart disease with heart failure; D64.9 Anemia, unspecified; K21.9 Gastro-esophageal reflux disease without esophagitis; I48.0 Paroxysmal atrial fibrillation; R73.03 Prediabetes; Z99.81 Dependence on supplemental oxygen; Z79.899 Other long term (current) drug therapy
CPT/HCPCS: 36415; 36600; 71045; 80053; 80305; 82375; 82805; 83735; 83880; 84439; 84443; 84484; 85025; 93005; 94640; 94660; 96374; 96375; 99285; C1893; J1650; J1940; J2920; J2930; J3490; J7611; J7620

== ENCOUNTER 2020-11-19 11:10 | Inpatient (IN) | payer OTHER ==
[~2020-11-19] VITALS: Ht 172.7 cm; Wt 207.9 kg
[~2020-11-19 11:10] MED LIST changes: +ALBU90AE INH; +APIX5TAB MT; +FLUT1AER INH; +FURO-151 MT; -FURO40TA5 PO; -LOSA100T32 PO; +P20 PO; -POTA8TAB4 PO; -Proair HFA
[2020-11-19 11:52] LABS: BG BASE EXCESS 7.8 mmol/L (-2.0-2.0); BG CARBOXYHEMOGLOBIN 0.2 % (0.5-1.5); BG DEOXYHEMOGLOBIN 1.2 % (0.0-5.0); BG FRACTION INSPIRED OXYGEN 28; BG METHEMOGLOBIN 0.3 % (0.0-1.5); BG OXYGEN SATURATION 98.8 % (92.0-98.5); BG OXYHEMOGLOBIN 98.3 % (94.0-97.0); BG PCO2 56.1 mmHg (35.0-45.0); BG PH 7.401 (7.350-7.450); BG PO2 157.8 mmHg (75.0-100.0); BG SAMPLE SITE RIGHT RADIAL; BG TOTAL HEMOGLOBIN 11.1 g/dL (12.0-18.0); BG VENT MODE NASAL CANNULA
[2020-11-19 11:57] LABS: BASOPHILS % 0.5 % (0.0-2.0); HEMATOCRIT. 31.1 % (42.0-52.0); LYMPHOCYTES % 13.4 % (20.0-50.0); MEAN CORPUSCULAR HEMOGLOBIN 26.6 pg (28.0-32.0); MEAN CORPUSCULAR VOLUME 82.7 fL (80.0-94.0); MEAN PLATELET VOLUME 7.4 fl (7.4-10.4); MONOCYTES % 7.5 % (2.0-8.0); NEUTROPHILS % 76.6 % (40.0-76.0); PLATELET 225 x1000/uL (130-400); RED BLOOD CELL COUNT 3.76 mill/uL (4.7-6.1); RED CELL DISTRIBUTION WIDTH 17.5 % (11.6-14.6)
[2020-11-19] MEDS ORDERED: ALBUTEROL (0.083%) 2.5MG/3ML NEB HHN ONE (12:00)
[2020-11-19 12:02] LABS: CHLORIDE 104 mEq/L (98-107)
[2020-11-19 12:06] LABS: INR 1.7; PROTHROMBIN TIME 17.4 sec (9.6-11.0)
[2020-11-19] MEDS ORDERED: FUROSEMIDE 40MG/4ML VIAL IVP ONE (12:45)
[2020-11-19] MEDS ORDERED: LORAZEPAM 0.5MG TABLET PO PRN (15:00)
[2020-11-19] MEDS ORDERED: PIPERACILLIN SODIUM/TAZOBACTAM 4.5 G in DEXT 5% WATER 100 ML IV SCH (15:00)
[2020-11-19] MEDS ORDERED: NA PHOS,M-B/NA PHOS,DI-BA ENEMA 118ML PR PRN (15:00)
[2020-11-19] MEDS ORDERED: ACETAMINOPHEN 650MG SUPP PR PRN (15:00)
[2020-11-19] MEDS ORDERED: MAGNESIUM/ALUMINUM HYDROXIDE/SIMETHICONE 30ML UDC PO PRN (15:00)
[2020-11-19] MEDS ORDERED: CLONIDINE 0.1MG TABLET PO PRN (15:00)
[2020-11-19] MEDS ORDERED: PIPERACILLIN/TAZ 3.375G PREMIX 50 ML IV SCH (15:00)
[2020-11-19] MEDS ORDERED: GUAIFENESIN 200MG/10ML SUGAR FREE UDC PO PRN (15:00)
[2020-11-19] MEDS ORDERED: HYDROCODONE/ACETAMINOPHEN 5/325MG TABLET PO PRN (15:00)
[2020-11-19] MEDS ORDERED: DOCUSATE SODIUM 100MG CAPSULE PO PRN (15:00)
[2020-11-19] MEDS ORDERED: DIPHENHYDRAMINE 50MG/ML VIAL IV PRN (15:00)
[2020-11-19] MEDS ORDERED: ACETAMINOPHEN 325MG TABLET PO PRN (15:00)
[2020-11-19] MEDS ORDERED: DEXAMETHASONE 4MG/ML 1ML VIAL IV ONE (15:00)
[2020-11-19] MEDS ORDERED: ONDANSETRON HCL 4MG/2ML INJ IV PRN (15:00)
[2020-11-19] MEDS: LOSARTAN POTASSIUM 25 MG TABLET PO SCH (15:43)
[2020-11-19] MEDS: METHYLPREDNISOLONE SOD SUCC 40 MG/ML VIAL IV SCH ×2 (15:44→21:06)
[2020-11-19] MEDS: DILTIAZEM HCL 60MG TABLET PO SCH ×2 (15:44→21:06)
[2020-11-19 16:33] VITALS: BP 150/81
[2020-11-19 16:39] VITALS: BP 150/81
[2020-11-19] MEDS: FUROSEMIDE 40MG/4ML VIAL IVP SCH (17:44)
[2020-11-19] MEDS: ENOXAPARIN 150MG/ML SYR SUBCUT SCH (17:46)
[2020-11-19] MEDS: ALBUTEROL 6.7GM HFA INHALER ORI SCH (18:00)
[2020-11-19 18:49] LABS: CLARITY URINE CLEAR (CLEAR); COLOR URINE YELLOW (YELLOW); KETONES URINE NEGATIVE (NEGATIVE); LEUKOCYTE ESTERASE URINE NEGATIVE (NEGATIVE); NITRITE URINE NEGATIVE (NEGATIVE); OCCULT BLOOD URINE NEGATIVE (NEGATIVE); PROTEIN URINE NEGATIVE (NEGATIVE); SPECIFIC GRAVITY URINE 1.009 (1.005-1.030); UROBILINOGEN URINE 0.2 E.U./dL (0.2-1.0)
[2020-11-19 20:00] VITALS: BP 127/71
[2020-11-19] MEDS: FAMOTIDINE 20MG TABLET PO SCH (21:06)
[2020-11-20] VITALS: BP 130/60
[2020-11-20] MEDS: ALBUTEROL 6.7GM HFA INHALER ORI SCH (00:42)
[2020-11-20 04:00] VITALS: BP 109/70
[2020-11-20] MEDS: DILTIAZEM HCL 60MG TABLET PO SCH (05:31)
[2020-11-20] MEDS: METHYLPREDNISOLONE SOD SUCC 40 MG/ML VIAL IV SCH ×3 (05:37→21:36)
[2020-11-20] MEDS: ENOXAPARIN 150MG/ML SYR SUBCUT SCH ×2 (05:38→17:50)
[2020-11-20] MEDS: FUROSEMIDE 40MG/4ML VIAL IVP SCH ×2 (06:17→17:47)
[2020-11-20 07:55] LABS: BASOPHILS % 0.3 % (0.0-2.0); HEMATOCRIT. 32.3 % (42.0-52.0); HEMOGLOBIN. 10.3 g/dL (14.0-18.0); LYMPHOCYTES % 11.2 % (20.0-50.0); MEAN CORPUSCULAR HEMOGLOBIN 26.1 pg (28.0-32.0); MEAN CORPUSCULAR VOLUME 82.2 fL (80.0-94.0); MEAN PLATELET VOLUME 8.2 fl (7.4-10.4); MONOCYTES % 1.2 % (2.0-8.0); NEUTROPHILS % 87.3 % (40.0-76.0); PLATELET 247 x1000/uL (130-400); RED BLOOD CELL COUNT 3.93 mill/uL (4.7-6.1); RED CELL DISTRIBUTION WIDTH 17.1 % (11.6-14.6)
[2020-11-20 08:00] VITALS: BP 133/78
[2020-11-20 08:03] LABS: INR 1.8; PROTHROMBIN TIME 18.7 sec (9.6-11.0)
[2020-11-20] MEDS: ASPIRIN 81MG EC TABLET PO SCH (08:12)
[2020-11-20] MEDS: LOSARTAN POTASSIUM 25 MG TABLET PO SCH (08:12)
[2020-11-20 08:17] LABS: CHLORIDE 97 mEq/L (98-107)
[2020-11-20 11:10] VITALS: BP 117/81
[2020-11-20 12:00] VITALS: BP 104/63
[2020-11-20] MEDS: ALBUTEROL (0.083%) 2.5MG/3ML NEB HHN SCH ×2 (13:30→20:51)
[2020-11-20] MEDS ORDERED: ALBUTEROL (0.083%) 2.5MG/3ML NEB ONE (13:36)
[2020-11-20] MEDS: PIPERACILLIN SODIUM/TAZOBACTAM 4.5 G in DEXT 5% WATER 100 ML IV SCH ×2 (14:18→17:47)
[2020-11-20] MEDS: DILTIAZEM HCL 90MG TABLET PO SCH ×2 (14:41→21:36)
[2020-11-20 20:00] VITALS: BP 149/85
[2020-11-20] MEDS ORDERED: PIPERACILLIN SODIUM/TAZOBACTAM 4.5 G in DEXT 5% WATER 100 ML IV SCH (20:00)
[2020-11-20] MEDS: FAMOTIDINE 20MG TABLET PO SCH (21:34)
[2020-11-20] MEDS: CARVEDILOL 3.125 MG TABLET PO SCH (21:35)
[2020-11-21] VITALS: BP 101/68
[2020-11-21] MEDS: PIPERACILLIN SODIUM/TAZOBACTAM 4.5 G in DEXT 5% WATER 100 ML IV SCH ×4 (00:19→17:19)
[2020-11-21] MEDS: ALBUTEROL (0.083%) 2.5MG/3ML NEB HHN SCH ×4 (01:57→21:39)
[2020-11-21 04:00] VITALS: BP 110/71
[2020-11-21 06:11] LABS: BASOPHILS % 0.1 % (0.0-2.0); HEMOGLOBIN. 9.5 g/dL (14.0-18.0); LYMPHOCYTES % 9.3 % (20.0-50.0); MEAN CORPUSCULAR HEMOGLOBIN 26.9 pg (28.0-32.0); MEAN CORPUSCULAR VOLUME 82.1 fL (80.0-94.0); MEAN PLATELET VOLUME 7.8 fl (7.4-10.4); MONOCYTES % 3.7 % (2.0-8.0); NEUTROPHILS % 86.9 % (40.0-76.0); PLATELET 265 x1000/uL (130-400); RED BLOOD CELL COUNT 3.54 mill/uL (4.7-6.1); RED CELL DISTRIBUTION WIDTH 16.8 % (11.6-14.6)
[2020-11-21] MEDS: DILTIAZEM HCL 90MG TABLET PO SCH ×3 (06:11→17:41)
[2020-11-21] MEDS: METHYLPREDNISOLONE SOD SUCC 40 MG/ML VIAL IV SCH ×3 (06:11→20:33)
[2020-11-21] MEDS: ENOXAPARIN 150MG/ML SYR SUBCUT SCH ×2 (06:11→17:45)
[2020-11-21 06:18] LABS: CHLORIDE 95 mEq/L (98-107)
[2020-11-21] MEDS: FUROSEMIDE 40MG/4ML VIAL IVP SCH ×2 (06:31→17:16)
[2020-11-21 08:05] VITALS: BP 124/79
[2020-11-21] MEDS: CARVEDILOL 3.125 MG TABLET PO SCH (09:00)
[2020-11-21] MEDS: ASPIRIN 81MG EC TABLET PO SCH (09:00)
[2020-11-21 11:53] VITALS: BP 113/80
[2020-11-21] MEDS ORDERED: DEXTROSE 50% WATER 50ML SYRINGE IV PRN ×2 (16:00)
[2020-11-21 16:35] VITALS: BP 118/73
[2020-11-21] MEDS: BLOOD SUGAR DIAGNOSTIC STRIP TEST SCH ×2 (17:19→20:26)
[2020-11-21] MEDS: INSULIN LISPRO 100 UNITS/ML SUBCUT SCH ×2 (17:38→20:32)
[2020-11-21] MEDS ORDERED: DIGOXIN 125MCG TABLET PO SCH (18:00)
[2020-11-21 20:00] VITALS: BP 112/73
[2020-11-21] MEDS: CARVEDILOL 6.25 MG TABLET PO SCH (20:21)
[2020-11-21] MEDS: FAMOTIDINE 20MG TABLET PO SCH (20:21)
[2020-11-22] VITALS: BP 113/69
[2020-11-22] MEDS: PIPERACILLIN SODIUM/TAZOBACTAM 4.5 G in DEXT 5% WATER 100 ML IV SCH ×4 (00:07→17:17)
[2020-11-22] MEDS: DILTIAZEM HCL 90MG TABLET PO SCH ×4 (00:07→17:16)
[2020-11-22] MEDS: ALBUTEROL (0.083%) 2.5MG/3ML NEB HHN SCH ×4 (01:11→22:05)
[2020-11-22 04:00] VITALS: BP 101/65
[2020-11-22 05:58] LABS: INR 1.7; PROTHROMBIN TIME 17.8 sec (9.6-11.0)
[2020-11-22 06:08] LABS: BASOPHILS % 0.1 % (0.0-2.0); HEMATOCRIT. 29.6 % (42.0-52.0); HEMOGLOBIN. 9.6 g/dL (14.0-18.0); LYMPHOCYTES % 8.2 % (20.0-50.0); MEAN CORPUSCULAR HEMOGLOBIN 26.8 pg (28.0-32.0); MEAN CORPUSCULAR VOLUME 82.4 fL (80.0-94.0); MEAN PLATELET VOLUME 7.8 fl (7.4-10.4); MONOCYTES % 4.5 % (2.0-8.0); NEUTROPHILS % 87.2 % (40.0-76.0); PLATELET 280 x1000/uL (130-400); RED BLOOD CELL COUNT 3.59 mill/uL (4.7-6.1); RED CELL DISTRIBUTION WIDTH 16.6 % (11.6-14.6)
[2020-11-22 06:17] LABS: CHLORIDE 93 mEq/L (98-107)
[2020-11-22] MEDS: BLOOD SUGAR DIAGNOSTIC STRIP TEST SCH ×4 (06:22→21:42)
[2020-11-22] MEDS: ENOXAPARIN 150MG/ML SYR SUBCUT SCH ×2 (06:22→17:16)
[2020-11-22] MEDS: METHYLPREDNISOLONE SOD SUCC 40 MG/ML VIAL IV SCH ×3 (06:23→21:55)
[2020-11-22] MEDS: FUROSEMIDE 40MG/4ML VIAL IVP SCH ×2 (06:39→16:23)
[2020-11-22 07:51] VITALS: BP 106/73
[2020-11-22] MEDS: INSULIN LISPRO 100 UNITS/ML SUBCUT SCH ×4 (08:33→21:57)
[2020-11-22] MEDS: ASCORBIC ACID 500 MG TABLET PO SCH (08:34)
[2020-11-22] MEDS: ZINC SULFATE 220 MG ( 50 ) CAPSULE PO SCH (08:35)
[2020-11-22] MEDS: ASPIRIN 81MG EC TABLET PO SCH (08:35)
[2020-11-22] MEDS: CARVEDILOL 6.25 MG TABLET PO SCH ×2 (08:37→21:55)
[2020-11-22 11:53] VITALS: BP 125/88
[2020-11-22 16:36] VITALS: BP 121/88
[2020-11-22] MEDS: DIGOXIN 250MCG TABLET PO SCH (17:15)
[2020-11-22 20:00] VITALS: BP 129/82
[2020-11-22] MEDS: FAMOTIDINE 20MG TABLET PO SCH (21:55)
[2020-11-22] MEDS: INSULIN GLARGINE UD 100 UNITS/ML SYR SUBCUT SCH (21:58)
[2020-11-23] VITALS: BP_SYST 138; BP_SYST 141; BP_DIAS 60; BP_DIAS 66
[2020-11-23] MEDS: PIPERACILLIN SODIUM/TAZOBACTAM 4.5 G in DEXT 5% WATER 100 ML IV SCH ×4 (00:50→17:41)
[2020-11-23] MEDS: DILTIAZEM HCL 90MG TABLET PO SCH ×4 (00:51→17:40)
[2020-11-23 04:00] VITALS: BP 100/63
[2020-11-23] MEDS: ALBUTEROL (0.083%) 2.5MG/3ML NEB HHN SCH ×3 (04:14→12:57)
[2020-11-23] MEDS: METHYLPREDNISOLONE SOD SUCC 40 MG/ML VIAL IV SCH ×3 (07:06→21:49)
[2020-11-23] MEDS: ENOXAPARIN 150MG/ML SYR SUBCUT SCH ×2 (07:08→17:16)
[2020-11-23] MEDS: FUROSEMIDE 40MG/4ML VIAL IVP SCH ×2 (07:08→17:40)
[2020-11-23] MEDS: BLOOD SUGAR DIAGNOSTIC STRIP TEST SCH ×4 (07:08→21:23)
[2020-11-23 07:12] LABS: HEMATOCRIT. 34.4 % (42.0-52.0); HEMOGLOBIN. 11.1 g/dL (14.0-18.0); MEAN CORPUSCULAR HEMOGLOBIN 26.5 pg (28.0-32.0); MEAN CORPUSCULAR VOLUME 81.8 fL (80.0-94.0); MONOCYTES % 5.7 % (2.0-8.0); NEUTROPHILS % 85.3 % (40.0-76.0); PLATELET 315 x1000/uL (130-400); RED CELL DISTRIBUTION WIDTH 16.9 % (11.6-14.6)
[2020-11-23 07:19] LABS: CHLORIDE 93 mEq/L (98-107)
[2020-11-23 08:00] VITALS: BP 117/60
[2020-11-23] MEDS: CARVEDILOL 6.25 MG TABLET PO SCH ×2 (09:00→21:48)
[2020-11-23] MEDS: ASPIRIN 81MG EC TABLET PO SCH (09:00)
[2020-11-23] MEDS: ZINC SULFATE 220 MG ( 50 ) CAPSULE PO SCH (09:00)
[2020-11-23] MEDS: ASCORBIC ACID 500 MG TABLET PO SCH (09:00)
[2020-11-23] MEDS: INSULIN LISPRO 100 UNITS/ML SUBCUT SCH ×4 (09:08→22:08)
[2020-11-23 12:00] VITALS: BP 114/74
[2020-11-23 16:00] VITALS: BP 118/72
[2020-11-23] MEDS: DIGOXIN 250MCG TABLET PO SCH (17:40)
[2020-11-23 20:00] VITALS: BP 129/83
[2020-11-23] MEDS: FAMOTIDINE 20MG TABLET PO SCH (21:48)
[2020-11-23] MEDS ORDERED: INSULIN LISPRO 100 UNITS/ML SUBCUT NR (22:00)
[2020-11-23] MEDS: INSULIN GLARGINE UD 100 UNITS/ML SYR SUBCUT SCH (22:11)
[2020-11-24] VITALS: BP 111/60
[2020-11-24] MEDS: PIPERACILLIN SODIUM/TAZOBACTAM 4.5 G in DEXT 5% WATER 100 ML IV SCH ×4 (00:25→17:49)
[2020-11-24] MEDS: DILTIAZEM HCL 90MG TABLET PO SCH ×4 (00:25→17:38)
[2020-11-24] MEDS: ALBUTEROL (0.083%) 2.5MG/3ML NEB HHN SCH ×4 (02:00→21:24)
[2020-11-24 04:00] VITALS: BP 111/67
[2020-11-24] MEDS: METHYLPREDNISOLONE SOD SUCC 40 MG/ML VIAL IV SCH ×2 (06:53→13:41)
[2020-11-24] MEDS: FUROSEMIDE 40MG/4ML VIAL IVP SCH ×2 (06:54→17:39)
[2020-11-24] MEDS: BLOOD SUGAR DIAGNOSTIC STRIP TEST SCH ×4 (06:54→20:26)
[2020-11-24] MEDS: ENOXAPARIN 150MG/ML SYR SUBCUT SCH ×2 (06:54→17:38)
[2020-11-24 08:00] VITALS: BP 115/75
[2020-11-24] MEDS: ASPIRIN 81MG EC TABLET PO SCH (08:40)
[2020-11-24] MEDS: ASCORBIC ACID 500 MG TABLET PO SCH (08:40)
[2020-11-24] MEDS: ZINC SULFATE 220 MG ( 50 ) CAPSULE PO SCH (08:40)
[2020-11-24] MEDS: CARVEDILOL 6.25 MG TABLET PO SCH (08:41)
[2020-11-24] MEDS: INSULIN LISPRO 100 UNITS/ML SUBCUT SCH ×4 (08:42→21:00)
[2020-11-24 11:55] VITALS: BP 122/66
[2020-11-24] MEDS ORDERED: INSULIN LISPRO 100 UNITS/ML SUBCUT NR (12:00)
[2020-11-24] MEDS: INSULIN GLARGINE UD 100 UNITS/ML SYR SUBCUT SCH ×2 (12:32→21:00)
[2020-11-24 16:00] VITALS: BP 126/68
[2020-11-24] MEDS: DIGOXIN 250MCG TABLET PO SCH (17:38)
[2020-11-24 20:00] VITALS: BP 148/71
[2020-11-24] MEDS: FAMOTIDINE 20MG TABLET PO SCH (20:56)
[2020-11-24] MEDS: METOPROLOL TARTRATE 50MG TABLET PO SCH (20:59)
[2020-11-25 00:04] VITALS: BP 104/68
[2020-11-25] MEDS: ALBUTEROL (0.083%) 2.5MG/3ML NEB HHN SCH ×2 (02:22→08:06)
[2020-11-25 04:00] VITALS: BP 107/72
[2020-11-25] MEDS: FUROSEMIDE 40MG/4ML VIAL IVP SCH (06:19)
[2020-11-25] MEDS: DILTIAZEM HCL 90MG TABLET PO SCH ×3 (06:19→12:42)
[2020-11-25] MEDS: BLOOD SUGAR DIAGNOSTIC STRIP TEST SCH ×2 (06:20→12:31)
[2020-11-25] MEDS: ENOXAPARIN 150MG/ML SYR SUBCUT SCH (06:20)
[2020-11-25 07:10] LABS: BASOPHILS % 0.2 % (0.0-2.0); HEMATOCRIT. 32.4 % (42.0-52.0); HEMOGLOBIN. 10.4 g/dL (14.0-18.0); LYMPHOCYTES % 8.8 % (20.0-50.0); MEAN CORPUSCULAR HEMOGLOBIN 26.1 pg (28.0-32.0); MEAN CORPUSCULAR VOLUME 81.5 fL (80.0-94.0); MEAN PLATELET VOLUME 7.9 fl (7.4-10.4); MONOCYTES % 7.1 % (2.0-8.0); NEUTROPHILS % 83.9 % (40.0-76.0); PLATELET 334 x1000/uL (130-400); RED BLOOD CELL COUNT 3.98 mill/uL (4.7-6.1); RED CELL DISTRIBUTION WIDTH 16.9 % (11.6-14.6)
[2020-11-25 07:22] LABS: CHLORIDE 93 mEq/L (98-107)
[2020-11-25 07:51] LABS: DIGOXIN 0.7 ng/mL (0.9-2.0)
[2020-11-25 08:00] VITALS: BP 127/59
[2020-11-25] MEDS: ZINC SULFATE 220 MG ( 50 ) CAPSULE PO SCH (08:50)
[2020-11-25] MEDS: INSULIN LISPRO 100 UNITS/ML SUBCUT SCH ×2 (08:50→12:41)
[2020-11-25] MEDS: ASPIRIN 81MG EC TABLET PO SCH (08:50)
[2020-11-25] MEDS: ASCORBIC ACID 500 MG TABLET PO SCH (08:50)
[2020-11-25] MEDS: METOPROLOL TARTRATE 50MG TABLET PO SCH (08:52)
[2020-11-25] MEDS ORDERED: METHYLPREDNISOLONE SOD SUCC 40 MG/ML VIAL IV SCH (09:00)
[2020-11-25] MEDS: INSULIN GLARGINE UD 100 UNITS/ML SYR SUBCUT SCH (10:15)
[2020-11-25] MEDS ORDERED: PRED10TA PO (11:59)
[2020-11-25] MEDS ORDERED: SULF1TAB48 MT (11:59)
[2020-11-25 12:00] VITALS: BP 112/68
[2020-11-25] MEDS ORDERED: SULFAMETHOXAZOLE/TRIMETHOPRIM 800/160MG TABLET PO SCH (12:00)
[2020-11-25 15:59] VITALS: BP 137/67
[2020-11-25 16:00] VITALS: BP 137/67
== END 2020-11-25 17:55 | disposition home health service (06) | DRG 190 ==
LOC: ER 11:10 → 7WST 14:43 → ENRESERV 15:15 → 6WST 11-20 11:31
PROVIDERS: ADMIT Internal Medicine; ATTEND Internal Medicine
PROC: 5A09357 Assistance with Respiratory Ventilation, Less than 24 Consecutive Hours, Continuous Positive Airway Pressure (ICD-10-PCS; principal; 2020-11-20)
PROC: 5A09357 Assistance with Respiratory Ventilation, Less than 24 Consecutive Hours, Continuous Positive Airway Pressure (ICD-10-PCS; 2020-11-21)
PROC: 5A09357 Assistance with Respiratory Ventilation, Less than 24 Consecutive Hours, Continuous Positive Airway Pressure (ICD-10-PCS; 2020-11-23)
PROC: 5A09357 Assistance with Respiratory Ventilation, Less than 24 Consecutive Hours, Continuous Positive Airway Pressure (ICD-10-PCS; 2020-11-24)
PROC: 5A09357 Assistance with Respiratory Ventilation, Less than 24 Consecutive Hours, Continuous Positive Airway Pressure (ICD-10-PCS; 2020-11-25)
DX: J44.1 Chronic obstructive pulmonary disease with (acute) exacerbation (principal); I50.23 Acute on chronic systolic (congestive) heart failure; D68.59 Other primary thrombophilia; E66.2 Morbid (severe) obesity with alveolar hypoventilation; I48.92 Unspecified atrial flutter; Z68.45 Body mass index [BMI] 70 or greater, adult; I42.0 Dilated cardiomyopathy; Z68.44 Body mass index [BMI] 60.0-69.9, adult; E11.65 Type 2 diabetes mellitus with hyperglycemia; I11.0 Hypertensive heart disease with heart failure; I48.0 Paroxysmal atrial fibrillation; Z20.822 Contact with and (suspected) exposure to COVID-19; Z79.01 Long term (current) use of anticoagulants; K21.9 Gastro-esophageal reflux disease without esophagitis; D64.9 Anemia, unspecified; B95.62 Methicillin resistant Staphylococcus aureus infection as the cause of diseases classified elsewhere; R06.03 Acute respiratory distress; Z79.51 Long term (current) use of inhaled steroids; Z79.899 Other long term (current) drug therapy; Z82.49 Family history of ischemic heart disease and other diseases of the circulatory system
CPT/HCPCS: 36415; 36600; 71045; 80048; 80053; 80162; 81003; 82375; 82805; 82962; 83036; 83735; 83880; 84443; 84484; 85025; 93005; 93970; 94003; 94640; 94660; 97116; 97162; 99291; C1893; J1100; J1650; J1815; J1940; J2543; J2920; J7040; J7060; U0003

== ENCOUNTER 2020-12-17 00:48 | Inpatient (IN) | payer OTHER ==
[~2020-12-17] VITALS: Ht 175.3 cm; Wt 169.6 kg
[2020-12-17] VITALS (72 sets, daily range): BP systolic 62–170; BP diastolic 29–115
[~2020-12-17 00:48] MED LIST changes: +PRED10TA PO; +SULF1TAB48 MT
[2020-12-17] MEDS ORDERED: ASPIRIN 81MG TABLET PO ONE (01:15)
[2020-12-17] MEDS ORDERED: DILTIAZEM HCL 5MG/ML 5ML VIAL IV ONE (01:15)
[2020-12-17] MEDS ORDERED: DILTIAZEM HCL 125 MG in DEXT 5% WATER 100 ML IV ONE (01:15)
[2020-12-17] MEDS ORDERED: FUROSEMIDE 40MG/4ML VIAL IV ONE (01:15)
[2020-12-17 01:29] LABS: BASOPHILS % 0.8 % (0.0-2.0); EOSINOPHILS % 0.6 % (0.0-5.0); HEMATOCRIT. 30.9 % (42.0-52.0); HEMOGLOBIN. 9.7 g/dL (14.0-18.0); LYMPHOCYTES % 18.1 % (20.0-50.0); MEAN CORPUSCULAR HEMOGLOBIN 26.1 pg (28.0-32.0); MEAN CORPUSCULAR VOLUME 83.6 fL (80.0-94.0); MEAN PLATELET VOLUME 7.7 fl (7.4-10.4); MONOCYTES % 9.7 % (2.0-8.0); NEUTROPHILS % 70.8 % (40.0-76.0); PLATELET 252 x1000/uL (130-400); RED CELL DISTRIBUTION WIDTH 18.6 % (11.6-14.6)
[2020-12-17 01:34] LABS: CHLORIDE 102 mEq/L (98-107)
[2020-12-17 02:51] LABS: INR 1.5; PARTIAL THROMBOPLASTIN TIME 25.5 sec (23.4-31.0); PROTHROMBIN TIME 15.5 sec (9.6-11.0)
[2020-12-17 03:58] LABS: CLARITY URINE CLEAR (CLEAR); COLOR URINE YELLOW (YELLOW); KETONES URINE NEGATIVE (NEGATIVE); LEUKOCYTE ESTERASE URINE NEGATIVE (NEGATIVE); NITRITE URINE NEGATIVE (NEGATIVE); OCCULT BLOOD URINE NEGATIVE (NEGATIVE); PROTEIN URINE NEGATIVE (NEGATIVE); SPECIFIC GRAVITY URINE 1.009 (1.005-1.030); UROBILINOGEN URINE 0.2 E.U./dL (0.2-1.0)
[2020-12-17] MEDS ORDERED: CARV3.1242 MT (06:10)
[2020-12-17] MEDS ORDERED: IPRATROPIUM/ALBUTEROL 0.5-3(2.5)MG/3ML NEB HHN PRN (06:45)
[2020-12-17] MEDS ORDERED: PREDNISONE 20MG TABLET PO SCH (08:20)
[2020-12-17] MEDS: PANTOPRAZOLE SODIUM 40 MG/VIAL IV SCH (08:49)
[2020-12-17] MEDS ORDERED: PREDNISOLONE 15 MG/5 ML ORAL SYRINGE PO SCH (09:00)
[2020-12-17] MEDS ORDERED: FUROSEMIDE 40MG/4ML VIAL IVP SCH ×2 (09:00→17:15)
[2020-12-17] MEDS ORDERED: ENOXAPARIN 40MG/0.4ML SYR SUBCUT SCH ×2 (09:00)
[2020-12-17] MEDS ORDERED: APIXABAN 5 MG TABLET PO SCH (09:00)
[2020-12-17] MEDS ORDERED: DIGOXIN 500MCG/2ML AMP IV NR (10:30)
[2020-12-17] MEDS: METHYLPREDNISOLONE SOD SUCC 40 MG/ML VIAL IV SCH ×2 (10:42→17:26)
[2020-12-17] MEDS: DILTIAZEM HCL 90MG TABLET PO SCH ×4 (10:42→23:20)
[2020-12-17] MEDS ORDERED: ACETAMINOPHEN 650MG SUPP PR PRN (11:45)
[2020-12-17] MEDS ORDERED: HYDRALAZINE 20MG/ML VIAL IV PRN (11:45)
[2020-12-17] MEDS ORDERED: HYDROCODONE/ACETAMINOPHEN 5/325MG TABLET PO PRN (11:45)
[2020-12-17] MEDS ORDERED: CLONIDINE 0.1MG TABLET PO PRN (11:45)
[2020-12-17] MEDS ORDERED: DOCUSATE SODIUM 100MG CAPSULE PO PRN (11:45)
[2020-12-17] MEDS ORDERED: ACETAMINOPHEN 325MG TABLET PO PRN (11:45)
[2020-12-17] MEDS: LOSARTAN POTASSIUM 25 MG TABLET PO SCH (11:52)
[2020-12-17] MEDS ORDERED: DEXTROSE 50% WATER 50ML SYRINGE IV PRN (12:00)
[2020-12-17] MEDS: BLOOD SUGAR DIAGNOSTIC STRIP TEST SCH ×3 (12:14→21:32)
[2020-12-17] MEDS: FUROSEMIDE 40MG/4ML VIAL IVP SCH ×2 (13:07→21:18)
[2020-12-17] MEDS: INSULIN LISPRO 100 UNITS/ML SUBCUT SCH ×3 (13:08→21:29)
[2020-12-17] MEDS: METOPROLOL TARTRATE 25MG TABLET PO SCH ×2 (13:08→21:00)
[2020-12-17] MEDS: IPRATROPIUM/ALBUTEROL 0.5-3(2.5)MG/3ML NEB HHN SCH ×2 (14:33→20:47)
[2020-12-17 15:42] LABS: BASOPHILS % 0.3 % (0.0-2.0); EOSINOPHILS % 0.1 % (0.0-5.0); HEMATOCRIT. 30.8 % (42.0-52.0); HEMOGLOBIN. 9.7 g/dL (14.0-18.0); LYMPHOCYTES % 7.3 % (20.0-50.0); MEAN CORPUSCULAR HEMOGLOBIN 26.3 pg (28.0-32.0); MEAN CORPUSCULAR VOLUME 83.7 fL (80.0-94.0); MEAN PLATELET VOLUME 7.8 fl (7.4-10.4); MONOCYTES % 2.8 % (2.0-8.0); NEUTROPHILS % 89.5 % (40.0-76.0); PLATELET 258 x1000/uL (130-400); RED BLOOD CELL COUNT 3.68 mill/uL (4.7-6.1); RED CELL DISTRIBUTION WIDTH 18.6 % (11.6-14.6)
[2020-12-17 16:04] LABS: CHLORIDE 100 mEq/L (98-107)
[2020-12-17 16:12] LABS: CREATINE KINASE 31 IU/L (39-308)
[2020-12-17 16:14] LABS: CREATINE KINASE MB FRACTION < 1.0 ng/mL (0.5-3.6)
[2020-12-17] MEDS: ENOXAPARIN 150MG/ML SYR SUBCUT SCH (23:21)
[2020-12-17 23:39] LABS: CREATINE KINASE 30 IU/L (39-308)
[2020-12-17 23:40] LABS: CREATINE KINASE MB FRACTION < 1.0 ng/mL (0.5-3.6)
[2020-12-18] VITALS (50 sets, daily range): BP systolic 45–145; BP diastolic 29–93
[2020-12-18] MEDS: IPRATROPIUM/ALBUTEROL 0.5-3(2.5)MG/3ML NEB HHN SCH ×4 (01:05→21:06)
[2020-12-18] MEDS: METHYLPREDNISOLONE SOD SUCC 40 MG/ML VIAL IV SCH ×3 (02:06→17:30)
[2020-12-18] MEDS: FUROSEMIDE 40MG/4ML VIAL IVP SCH ×4 (02:06→20:49)
[2020-12-18] MEDS: DILTIAZEM HCL 90MG TABLET PO SCH ×3 (05:51→17:29)
[2020-12-18 06:51] LABS: BASOPHILS % 0.1 % (0.0-2.0); HEMATOCRIT. 30.1 % (42.0-52.0); HEMOGLOBIN. 9.6 g/dL (14.0-18.0); LYMPHOCYTES % 10.2 % (20.0-50.0); MEAN CORPUSCULAR HEMOGLOBIN 26.9 pg (28.0-32.0); MONOCYTES % 2.8 % (2.0-8.0); NEUTROPHILS % 86.9 % (40.0-76.0); PLATELET 265 x1000/uL (130-400); RED BLOOD CELL COUNT 3.58 mill/uL (4.7-6.1); RED CELL DISTRIBUTION WIDTH 18.5 % (11.6-14.6)
[2020-12-18 06:54] LABS: CHLORIDE 96 mEq/L (98-107)
[2020-12-18 06:58] LABS: INR 1.7; PROTHROMBIN TIME 17.3 sec (9.6-11.0)
[2020-12-18 07:04] LABS: CREATINE KINASE 29 IU/L (39-308)
[2020-12-18 07:07] LABS: CREATINE KINASE MB FRACTION < 1.0 ng/mL (0.5-3.6)
[2020-12-18] MEDS: BLOOD SUGAR DIAGNOSTIC STRIP TEST SCH ×3 (08:16→20:40)
[2020-12-18] MEDS: INSULIN LISPRO 100 UNITS/ML SUBCUT SCH ×4 (08:20→20:55)
[2020-12-18] MEDS: METOPROLOL TARTRATE 25MG TABLET PO SCH ×2 (08:40→20:49)
[2020-12-18] MEDS: LOSARTAN POTASSIUM 25 MG TABLET PO SCH (08:40)
[2020-12-18] MEDS: PANTOPRAZOLE SODIUM 40 MG/VIAL IV SCH (08:41)
[2020-12-18 16:00] LABS: CREATINE KINASE 26 IU/L (39-308)
[2020-12-18 16:01] LABS: CREATINE KINASE MB FRACTION < 1.0 ng/mL (0.5-3.6)
[2020-12-18 22:15] LABS: CREATINE KINASE 29 IU/L (39-308); CREATINE KINASE MB FRACTION < 1.0 ng/mL (0.5-3.6)
[2020-12-19] VITALS: BP 117/68
[2020-12-19 00:30] VITALS: BP 116/68
[2020-12-19] MEDS: ENOXAPARIN 150MG/ML SYR SUBCUT SCH (01:24)
[2020-12-19] MEDS: FUROSEMIDE 40MG/4ML VIAL IVP SCH (01:24)
[2020-12-19] MEDS: METHYLPREDNISOLONE SOD SUCC 40 MG/ML VIAL IV SCH (01:24)
[2020-12-19 01:25] VITALS: BP 126/69
[2020-12-19] MEDS: DILTIAZEM HCL 90MG TABLET PO SCH (01:25)
== END 2020-12-19 01:50 | disposition short-term general hospital (02) | DRG 189 ==
LOC: ER 00:48 → ENRESERV 05:18 → CVICU 06:07 → 3WST 12-18 17:02
PROVIDERS: ADMIT Internal Medicine; ATTEND Internal Medicine
PROC: 5A09357 Assistance with Respiratory Ventilation, Less than 24 Consecutive Hours, Continuous Positive Airway Pressure (ICD-10-PCS; principal; 2020-12-18)
DX: J96.20 Acute and chronic respiratory failure, unspecified whether with hypoxia or hypercapnia (principal); D68.59 Other primary thrombophilia; E66.2 Morbid (severe) obesity with alveolar hypoventilation; I48.3 Typical atrial flutter; J44.1 Chronic obstructive pulmonary disease with (acute) exacerbation; Z68.43 Body mass index [BMI] 50.0-59.9, adult; I42.0 Dilated cardiomyopathy; I42.2 Other hypertrophic cardiomyopathy; I11.0 Hypertensive heart disease with heart failure; D64.9 Anemia, unspecified; E78.5 Hyperlipidemia, unspecified; J45.909 Unspecified asthma, uncomplicated; E11.65 Type 2 diabetes mellitus with hyperglycemia; Z20.822 Contact with and (suspected) exposure to COVID-19; I48.0 Paroxysmal atrial fibrillation; I50.9 Heart failure, unspecified; Z79.01 Long term (current) use of anticoagulants; Z79.51 Long term (current) use of inhaled steroids; Z79.899 Other long term (current) drug therapy; Z86.14 Personal history of Methicillin resistant Staphylococcus aureus infection; Z87.891 Personal history of nicotine dependence
CPT/HCPCS: 36415; 71045; 80048; 80053; 81003; 82550; 82553; 82962; 83036; 83735; 83880; 84132; 84484; 85025; 87426; 93005; 94640; 94660; 99285; C9113; J1160; J1650; J1815; J1940; J2920; J3490; J7060; J7512

== ENCOUNTER 2021-02-26 11:48 | Emergency (ER) | payer OTHER ==
[~2021-02-26] VITALS: Ht 172.7 cm; Wt 200.0 kg
[~2021-02-26 11:48] MED LIST changes: +CARV3.1242 MT; -SULF1TAB48 MT
[2021-02-26 13:13] LABS: BASOPHILS % 0.8 % (0.0-2.0); EOSINOPHILS % 2.8 % (0.0-5.0); HEMATOCRIT. 34.8 % (42.0-52.0); HEMOGLOBIN. 11.5 g/dL (14.0-18.0); LYMPHOCYTES % 16.2 % (20.0-50.0); MEAN CORPUSCULAR HEMOGLOBIN 28.2 pg (28.0-32.0); MEAN CORPUSCULAR VOLUME 85.3 fL (80.0-94.0); MEAN PLATELET VOLUME 8.5 fl (7.4-10.4); MONOCYTES % 8.4 % (2.0-8.0); NEUTROPHILS % 71.8 % (40.0-76.0); PLATELET 273 x1000/uL (130-400); RED BLOOD CELL COUNT 4.08 mill/uL (4.7-6.1); RED CELL DISTRIBUTION WIDTH 18.1 % (11.6-14.6)
[2021-02-26 13:19] LABS: CHLORIDE 104 mEq/L (98-107)
[2021-02-26] MEDS ORDERED: ASPIRIN 81MG TABLET PO ONE (15:15)
[2021-02-26] MEDS ORDERED: FUROSEMIDE 40MG/4ML VIAL IV ONE (15:15)
[2021-02-26] MEDS ORDERED: NITROGLYCERIN 0.4MG TABLET SL SL PRN (15:15)
[2021-02-26] MEDS ORDERED: METHYLPREDNISOLONE SOD SUCC 40 MG/ML VIAL IV NR (15:45)
[2021-02-26] MEDS ORDERED: IPRATROPIUM/ALBUTEROL 0.5-3(2.5)MG/3ML NEB HHN NR (15:45)
[2021-02-26] MEDS ORDERED: IPRATROPIUM/ALBUTEROL 0.5-3(2.5)MG/3ML NEB HHN SCH (18:00)
[2021-02-26 22:30] VITALS: BP 143/63
== END 2021-02-26 23:31 | disposition short-term general hospital (02) ==
LOC: ER 11:48 → CANBEDREQ 02-27 00:04
DX: I11.0 Hypertensive heart disease with heart failure (principal); I50.9 Heart failure, unspecified; I20.0 Unstable angina; I10 Essential (primary) hypertension; J44.1 Chronic obstructive pulmonary disease with (acute) exacerbation; I48.91 Unspecified atrial fibrillation; Z20.822 Contact with and (suspected) exposure to COVID-19; Z79.899 Other long term (current) drug therapy
CPT/HCPCS: 36415; 71045; 80053; 83880; 84484; 85025; 87426; 93005; 94640; 96374; 96375; 99285; J1940; J2920

== ENCOUNTER 2022-02-27 15:07 | Inpatient (IN) | payer OTHER ==
[~2022-02-27] VITALS: Ht 174 cm; Wt 75.3 kg
[~2022-02-27 15:07] MED LIST changes: +AMIO100T4 PO; +ASPI-1497 PO; +FERR324T22 PO; -FURO-151 MT; +FURO40TA5 PO; +GLIP5TAB12 MT; +LOSA25TA3 MT; +METF-414 PO; -P20 PO; +POTA-79 PO; -PRED10TA PO; +SPIR25TA MT
[2022-02-27 16:06] LABS: HEMATOCRIT. 35.9 % (42.0-52.0); HEMOGLOBIN. 11.3 g/dL (14.0-18.0); MEAN CORPUSCULAR VOLUME 82.1 fL (80.0-94.0); MEAN PLATELET VOLUME 8.2 fl (7.4-10.4); PLATELET 211 x1000/uL (130-400); RED BLOOD CELL COUNT 4.37 mill/uL (4.7-6.1); RED CELL DISTRIBUTION WIDTH 16.3 % (11.6-14.6)
[2022-02-27 16:15] LABS: CHLORIDE 102 mEq/L (98-107)
[2022-02-27 16:32] LABS: PLATELET ESTIMATE NORMAL
[2022-02-27] MEDS ORDERED: ALBUTEROL (0.083%) 2.5MG/3ML NEB HHN STA ×2 (16:41→20:06)
[2022-02-27] MEDS ORDERED: IPRATROPIUM BROMIDE (0.02%) 0.5MG/2.5ML NEB HHN STA ×2 (16:41→20:06)
[2022-02-27] MEDS ORDERED: METHYLPREDNISOLONE SOD SUCC 125 MG/2 ML VIAL IV STA (16:41)
[2022-02-27 22:27] VITALS: BP 164/89
[2022-02-27 22:30] VITALS: BP 164/89
[2022-02-28] VITALS: BP 134/74
[2022-02-28] MEDS ORDERED: CLONIDINE 0.1MG TABLET PO PRN (00:15)
[2022-02-28] MEDS ORDERED: NALOXONE HCL 0.4 MG/ML 1ML VIAL IV PRN (00:15)
[2022-02-28] MEDS: HYDROCODONE/ACETAMINOPHEN 5/325MG TABLET PO PRN ×2 (00:39→22:01)
[2022-02-28] MEDS: PANTOPRAZOLE 40MG DR TABLET PO SCH ×2 (00:39→07:04)
[2022-02-28] MEDS ORDERED: ONDANSETRON HCL 4MG/2ML INJ IV PRN (02:00)
[2022-02-28] MEDS: METHYLPREDNISOLONE SOD SUCC 40 MG/ML VIAL IV SCH ×4 (02:00→21:40)
[2022-02-28] MEDS ORDERED: DEXTROSE 50% WATER 50ML SYRINGE IV PRN (02:30)
[2022-02-28 04:00] VITALS: BP 149/84
[2022-02-28] MEDS: BLOOD SUGAR DIAGNOSTIC STRIP TEST SCH ×4 (06:33→21:42)
[2022-02-28] MEDS ORDERED: CARV12.545 PO (06:43)
[2022-02-28] MEDS: INSULIN LISPRO 100 UNITS/ML SUBCUT SCH ×4 (07:05→21:47)
[2022-02-28 08:00] VITALS: BP 142/76
[2022-02-28] MEDS: ASPIRIN 81MG TABLET PO SCH (09:00)
[2022-02-28] MEDS: FUROSEMIDE 40MG TABLET PO SCH ×2 (09:00→21:40)
[2022-02-28] MEDS: AMIODARONE HCL 200 MG TABLET PO SCH (09:01)
[2022-02-28] MEDS: ENOXAPARIN 40MG/0.4ML SYR SUBCUT SCH ×2 (09:01→21:42)
[2022-02-28] MEDS: CARVEDILOL 12.5MG TABLET PO SCH ×2 (09:01→21:41)
[2022-02-28] MEDS: IPRATROPIUM/ALBUTEROL 0.5-3(2.5)MG/3ML NEB HHN SCH ×4 (10:12→22:02)
[2022-02-28 12:03] LABS: BASOPHILS % 0.1 % (0.0-2.0); HEMATOCRIT. 35.6 % (42.0-52.0); HEMOGLOBIN. 10.8 g/dL (14.0-18.0); LYMPHOCYTES % 8.6 % (20.0-50.0); MEAN CORPUSCULAR VOLUME 85.2 fL (80.0-94.0); MEAN PLATELET VOLUME 8.3 fl (7.4-10.4); MONOCYTES % 2.4 % (2.0-8.0); NEUTROPHILS % 88.9 % (40.0-76.0); PLATELET 183 x1000/uL (130-400); RED BLOOD CELL COUNT 4.18 mill/uL (4.7-6.1); RED CELL DISTRIBUTION WIDTH 16.5 % (11.6-14.6)
[2022-02-28 12:12] VITALS: BP 118/75
[2022-02-28 12:25] LABS: CHLORIDE 100 mEq/L (98-107)
[2022-02-28 16:00] VITALS: BP 120/54
[2022-02-28 20:00] VITALS: BP 118/57
[2022-03-01] VITALS: BP 106/53
[2022-03-01] MEDS: IPRATROPIUM/ALBUTEROL 0.5-3(2.5)MG/3ML NEB HHN SCH ×6 (00:23→21:18)
[2022-03-01 04:00] VITALS: BP 122/71
[2022-03-01] MEDS: BLOOD SUGAR DIAGNOSTIC STRIP TEST SCH ×4 (05:53→21:00)
[2022-03-01] MEDS: INSULIN LISPRO 100 UNITS/ML SUBCUT SCH ×4 (05:54→22:17)
[2022-03-01] MEDS: METHYLPREDNISOLONE SOD SUCC 40 MG/ML VIAL IV SCH ×3 (06:09→22:16)
[2022-03-01] MEDS: PANTOPRAZOLE 40MG DR TABLET PO SCH (06:09)
[2022-03-01 08:00] VITALS: BP 115/63
[2022-03-01] MEDS: ASPIRIN 81MG TABLET PO SCH (08:34)
[2022-03-01] MEDS: CARVEDILOL 12.5MG TABLET PO SCH ×2 (08:34→22:15)
[2022-03-01] MEDS: AMIODARONE HCL 200 MG TABLET PO SCH (08:34)
[2022-03-01] MEDS: ENOXAPARIN 40MG/0.4ML SYR SUBCUT SCH ×2 (08:35→22:16)
[2022-03-01] MEDS: FUROSEMIDE 40MG TABLET PO SCH ×2 (08:35→22:14)
[2022-03-01 12:00] VITALS: BP 149/76
[2022-03-01 16:00] VITALS: BP 115/61
[2022-03-01 20:00] VITALS: BP 115/59
[2022-03-01] MEDS: HYDROCODONE/ACETAMINOPHEN 5/325MG TABLET PO PRN (22:21)
[2022-03-02] VITALS: BP 112/62
[2022-03-02] MEDS: IPRATROPIUM/ALBUTEROL 0.5-3(2.5)MG/3ML NEB HHN SCH ×6 (01:04→20:05)
[2022-03-02 04:00] VITALS: BP 124/73
[2022-03-02] MEDS: METHYLPREDNISOLONE SOD SUCC 40 MG/ML VIAL IV SCH ×3 (05:47→22:13)
[2022-03-02] MEDS: INSULIN LISPRO 100 UNITS/ML SUBCUT SCH ×4 (05:48→22:19)
[2022-03-02] MEDS: BLOOD SUGAR DIAGNOSTIC STRIP TEST SCH ×4 (05:49→22:14)
[2022-03-02 08:00] VITALS: BP 129/65
[2022-03-02] MEDS: ENOXAPARIN 40MG/0.4ML SYR SUBCUT SCH ×2 (08:38→22:13)
[2022-03-02] MEDS: FAMOTIDINE 20MG TABLET PO SCH ×2 (08:38→22:14)
[2022-03-02] MEDS: CARVEDILOL 12.5MG TABLET PO SCH ×2 (08:39→21:00)
[2022-03-02] MEDS: FUROSEMIDE 40MG TABLET PO SCH ×2 (08:39→22:14)
[2022-03-02] MEDS: ASPIRIN 81MG TABLET PO SCH (08:39)
[2022-03-02] MEDS: AMIODARONE HCL 200 MG TABLET PO SCH (08:39)
[2022-03-02 12:00] VITALS: BP 127/78
[2022-03-02 16:00] VITALS: BP 118/54
[2022-03-02 20:00] VITALS: BP 102/68
[2022-03-03] VITALS: BP 115/64
[2022-03-03] MEDS: IPRATROPIUM/ALBUTEROL 0.5-3(2.5)MG/3ML NEB HHN SCH ×4 (00:07→11:48)
[2022-03-03 04:00] VITALS: BP 122/62
[2022-03-03] MEDS: INSULIN LISPRO 100 UNITS/ML SUBCUT SCH ×2 (07:40→12:32)
[2022-03-03] MEDS: BLOOD SUGAR DIAGNOSTIC STRIP TEST SCH ×2 (07:45→12:32)
[2022-03-03] MEDS: METHYLPREDNISOLONE SOD SUCC 40 MG/ML VIAL IV SCH ×2 (07:45→15:28)
[2022-03-03 08:00] VITALS: BP 109/57
[2022-03-03] MEDS: CARVEDILOL 12.5MG TABLET PO SCH (09:00)
[2022-03-03] MEDS: FAMOTIDINE 20MG TABLET PO SCH (09:28)
[2022-03-03] MEDS: FUROSEMIDE 40MG TABLET PO SCH (09:28)
[2022-03-03] MEDS: ASPIRIN 81MG TABLET PO SCH (09:28)
[2022-03-03] MEDS: AMIODARONE HCL 200 MG TABLET PO SCH (09:29)
[2022-03-03] MEDS: ENOXAPARIN 40MG/0.4ML SYR SUBCUT SCH (09:29)
[2022-03-03] MEDS ORDERED: MED4 MT (10:45)
[2022-03-03 12:00] VITALS: BP 132/67
[2022-03-03 12:49] VITALS: BP 132/67
== END 2022-03-03 16:15 | disposition home or self-care (01) | DRG 189 ==
LOC: ER 15:07 → 8WST 20:09 → EDBEDREQ 20:15 → ENRESERV 20:57
PROVIDERS: ADMIT Internal Medicine; ATTEND Internal Medicine
PROC: 5A09357 Assistance with Respiratory Ventilation, Less than 24 Consecutive Hours, Continuous Positive Airway Pressure (ICD-10-PCS; principal; 2022-02-28)
PROC: 5A09357 Assistance with Respiratory Ventilation, Less than 24 Consecutive Hours, Continuous Positive Airway Pressure (ICD-10-PCS; 2022-03-01)
PROC: 5A09357 Assistance with Respiratory Ventilation, Less than 24 Consecutive Hours, Continuous Positive Airway Pressure (ICD-10-PCS; 2022-03-02)
PROC: 5A09357 Assistance with Respiratory Ventilation, Less than 24 Consecutive Hours, Continuous Positive Airway Pressure (ICD-10-PCS; 2022-03-03)
DX: J96.01 Acute respiratory failure with hypoxia (principal); I50.43 Acute on chronic combined systolic (congestive) and diastolic (congestive) heart failure; J44.1 Chronic obstructive pulmonary disease with (acute) exacerbation; J45.901 Unspecified asthma with (acute) exacerbation; E11.9 Type 2 diabetes mellitus without complications; I48.91 Unspecified atrial fibrillation; E66.01 Morbid (severe) obesity due to excess calories; G47.33 Obstructive sleep apnea (adult) (pediatric); Z79.01 Long term (current) use of anticoagulants; Z79.82 Long term (current) use of aspirin; Z79.84 Long term (current) use of oral hypoglycemic drugs; Z79.899 Other long term (current) drug therapy; Z68.24 Body mass index [BMI] 24.0-24.9, adult
CPT/HCPCS: 36415; 71045; 80053; 82962; 83036; 83880; 84484; 85025; 93005; 93970; 94640; 94644; 94660; 99291; J1650; J1815; J2920; J2930